=== PATIENT | female | born 1945 | race Caucasian/White ===

== ENCOUNTER 2023-01-19 10:14 | Emergency (ER) | payer MEDICARE, SELFPAY ==
[2023-01-19 10:24] VITALS: BP 148/64; PULSE 72; RESP 16; TEMP 36.3; O2SAT 97
--- NOTE | 2023-01-19 10:33 | ED.UPPEXIN ---
HPI - Extremity Injury (Upper) General Chief Complaint: Neck Pain/Injury Stated Complaint: Left Arm Pain Source: patient and RN notes reviewed History of Present Illness HPI narrative: 78 yo F presents to urgent care with complaints of left lateral neck and left arm pain and numbness x 2 days. Pt states she did do some cleaning the day her symptoms started. Pt reports increased pain when she moves her left arm around. Pt states the pain is relieved with ice application and rest. Denies any specific injury. Denies any weakness, chest pain, SOB, fevers, chills, N/V/D, dizziness, or other symptoms. Related Data Home Medications Medication Instructions Recorded Confirmed alclometasone 0.05 % topical topical 01/19/23 ointment alprazolam 1 mg tablet mg 01/19/23 amlodipine 5 mg tablet mg 01/19/23 atorvastatin 40 mg tablet mg 01/19/23 clobetasol 0.05 % scalp solution topical 01/19/23 clopidogrel 75 mg tablet mg 01/19/23 irbesartan 300 mg tablet mg 01/19/23 levothyroxine 50 mcg tablet mcg 01/19/23 mirabegron 25 mg tablet,extended mg PO 01/19/23 release 24 hr (Myrbetriq) venlafaxine 150 mg mg PO 01/19/23 capsule,extended release 24 hr Allergies Allergy/AdvReac Type Severity Reaction Status Date / Time No Known Allergies Allergy Unverified 01/19/23 10:41 Review of Systems Review of Systems: CONSTITUTIONAL: Denies fever, chills, or sweats. EYES: Denies visual changes, redness, or discharge. ENT: Denies otalgia and sore throat CARDIOVASCULAR: Denies chest pain, palpitations, or edema. RESPIRATORY: Denies cough or dyspnea. GASTROINTESTINAL: Denies abdominal pain, nausea, vomiting, or diarrhea. GENITOURINARY: Denies dysuria or hematuria. SKIN: Denies rash or itching. MUSCULOSKELETAL: Left neck and left arm pain NEUROLOGIC: Reports numbness/pain to left upper arm PMFSH Comments At the time of my signature, I reviewed and agree with the nursing past medical, surgical, social, and family history. There is no relevant family history pertinent to the patient complaint. Exam Narrative: GENERAL: This is a well-nourished, well-developed patient, in no apparent distress. HEAD: normocephalic, atraumatic. EYES: Sclera clear/white. Vision is grossly intact. EARS: External ears normal, auditory canals clear and without drainage. Hearing grossly intact. NOSE: External nose normal with no obvious nasal discharge, nares without redness, no rhinorrhea. THROAT: Mucous membranes moist, posterior pharynx clear. NECK: Neck supple, without lymphadenopathy, masses or thyromegaly. Mild tenderness to left lateral/posterior neck/trapezius area. Full ROM noted. CARDIOVASCULAR: Regular rate and rhythm without murmurs, gallops, or rubs. RESPIRATORY: Clear to auscultation. Breath sounds equal bilaterally. No wheezes, rales, or rhonchi. GASTROINTESTINAL: Abdomen soft, non-tender, nondistended. Bowel sounds are active. No hepato-splenomegaly, or palpable masses. No guarding. SKIN: warm, intact with no suspicious lesions or rash, good texture and turgor. NEURO: awake, alert, and oriented to person, place and time. There were no obvious focal neurologic abnormalities. EXTREMITIES: No clubbing, cyanosis, or edema. No joint tenderness, effusion, or edema noted. Full ROM. BACK: Nontender without deformity or crepitus. No flank tenderness. Course Course Level of Care: Express Care Visit Vital Signs Vital signs: Vital Signs Temperature 97.3 F L 01/19/23 10:24 Pulse Rate 72 01/19/23 10:24 Respiratory Rate 16 01/19/23 10:24 Blood Pressure 148/64 H 01/19/23 10:24 Pulse Oximetry 97 01/19/23 10:24 Oxygen Delivery Room Air 01/19/23 10:24 Temperature 97.3 F L 01/19/23 10:24 Pulse Rate 72 01/19/23 10:24 Respiratory Rate 16 01/19/23 10:24 Blood Pressure 148/64 H 01/19/23 10:24 Pulse Oximetry 97 01/19/23 10:24 Oxygen Delivery Room Air 01/19/23 10:24 Reviewed MDM - Extremity Injury (Up
[2023-01-19] MEDS: predniSONE 20 MG TABLET 40 MG PO (10:47)
== END 2023-01-19 11:10 | disposition home or self-care (01) ==
PROVIDERS: Emergency Provider Nurse Practitioner Family; PCP Family Medicine
DX: M54.12 Radiculopathy, cervical region (principal); E78.00 Pure hypercholesterolemia, unspecified; I10 Essential (primary) hypertension; K21.9 Gastro-esophageal reflux disease without esophagitis; M81.0 Age-related osteoporosis without current pathological fracture; Z86.73 Personal history of transient ischemic attack (TIA), and cerebral infarction without residual deficits
CPT/HCPCS: 99213; G0463; J7512

== ENCOUNTER 2023-03-03 12:07 | Emergency (ER) | payer MEDICARE, SELFPAY ==
[2023-03-03 12:19] VITALS: BP 151/68; PULSE 76; RESP 16; TEMP 36.6; O2SAT 97
--- NOTE | 2023-03-03 13:38 | ED.URI ---
HPI - URI/Sore Throat General Chief Complaint: Upper Respiratory Infection Stated Complaint: Vaginal Issue Time Seen by Provider: 03/03/23 13:27 Source: patient, RN notes reviewed and old records reviewed Mode of arrival: ambulatory Limitations: no limitations History of Present Illness HPI Narrative: 78 year old female who presents to express care with complaints of cough, nasal congestion body aches and some chills since yesterday, no known fevers. Patient reports that she has no no known ill exposure, has had flu shot this year and has been COVID vaccinated. Patient also reports irritation to vaginal area states skin from vaginag to rectal area itchy and burning, has used wash cloth to scratch area. Patient reports she has had previous similar complaint and her OB provider has given her some ointment to apply there MD elicited complaint: cough, rhinorrhea, nasal congestion and other (body aches and chills, vaginal issue) Onset (ago): day(s) (2) Pain scale (0-10): 2 Able to tolerate fluids by mouth: Yes Treatments prior to arrival: acetaminophen Related Data Home Medications Medication Instructions Recorded Confirmed alprazolam 1 mg tablet 0.5 mg PO HS PRN Anxiety 01/19/23 01/19/23 amlodipine 5 mg tablet 5 mg PO DAILY 01/19/23 01/19/23 ascorbic acid (vitamin C) 500 mg 250 mg PO DAILY 01/19/23 01/19/23 tablet atorvastatin 40 mg tablet 40 mg PO DAILY 01/19/23 01/19/23 calcium carbonate 500 mg-vitamin 1 tablet PO DAILY 01/19/23 01/19/23 D3 15 mcg (600 unit) tablet cetirizine 10 mg capsule (Zyrtec) 10 mg PO DAILY 01/19/23 01/19/23 clopidogrel 75 mg tablet 75 mg PO DAILY 01/19/23 01/19/23 fish oil-dha-epa 1,200 mg-144 1 cap PO DAILY 01/19/23 01/19/23 mg-216 mg capsule garlic 100 mg tablet 100 mg PO DAILY 01/19/23 01/19/23 irbesartan 300 mg tablet 300 mg PO DAILY 01/19/23 01/19/23 levothyroxine 50 mcg tablet 50 mcg PO DAILY 01/19/23 01/19/23 mirabegron 25 mg tablet,extended 25 mg PO DAILY 01/19/23 01/19/23 release 24 hr (Myrbetriq) multivitamin with minerals (Daily 1 tablet PO DAILY 01/19/23 01/19/23 Multivitamin-Minerals tablet) omeprazole 40 mg capsule,delayed 40 mg PO DAILY 01/19/23 01/19/23 release venlafaxine 150 mg 150 mg PO DAILY 01/19/23 01/19/23 capsule,extended release 24 hr vitamin E mixed 1,000 unit capsule 1,000 unit PO DAILY 01/19/23 01/19/23 esomeprazole magnesium 40 mg mg 03/03/23 capsule,delayed release Allergies Allergy/AdvReac Type Severity Reaction Status Date / Time No Known Allergies Allergy Unverified 03/03/23 12:19 Review of Systems Review of Systems: CONSTITUTIONAL: Denies fever, positive for chills, no sweats.reports body aches EYES: Denies visual changes, redness, or discharge. ENT: Positive for rhinorrhea, congestion, no sore throat, or otalgia. CARDIOVASCULAR: Denies chest pain, palpitations, or edema. RESPIRATORY: Reports cough denies dyspnea. GASTROINTESTINAL: Denies abdominal pain, nausea, vomiting, or diarrhea. GENITOURINARY: Denies dysuria or hematuria.positive for vaginal irritation and burning/itching SKIN: Denies rash or itching. MUSCULOSKELETAL: Denies back pain, joint pain, reports body aches NEUROLOGIC: Positive for history of anxiety or depression. All systems reviewed & are unremarkable except as noted in HPI and below PMFSH Past Medical History Medical History (Updated 03/05/23 @ 18:54 by Zully Chacon NP) Anxiety and depression CVA (cerebral vascular accident) Elevated cholesterol GERD (gastroesophageal reflux disease) Hypertension Hypothyroidism Wrist fracture, bilateral Surgical History Surgical History (Updated 03/05/23 @ 18:54 by Zully Chacon NP) History of right knee joint replacement Social History Social History (Updated 03/05/23 @ 18:50 by Zully Chacon NP) Smoking status: Never smoker Alcohol intake: current Alcohol use details: rare Substance use type: does not use Gender identity (if verbalized by the
--- NOTE | 2023-03-03 13:51 | PC.NURSE ---
given gown and aware of gas mask inspector to do further evaluation.
== END 2023-03-03 14:07 | disposition home or self-care (01) ==
PROVIDERS: Emergency Provider Registered Nurse
DX: J10.1 Influenza due to other identified influenza virus with other respiratory manifestations (principal); R10.2 Pelvic and perineal pain; Z20.822 Contact with and (suspected) exposure to COVID-19; Z86.73 Personal history of transient ischemic attack (TIA), and cerebral infarction without residual deficits; E78.00 Pure hypercholesterolemia, unspecified; K21.9 Gastro-esophageal reflux disease without esophagitis; I10 Essential (primary) hypertension; E03.9 Hypothyroidism, unspecified; Z96.651 Presence of right artificial knee joint; F41.9 Anxiety disorder, unspecified; F32.A Depression, unspecified
CPT/HCPCS: 87426; 87804; 99213; C9803; G0463

== ENCOUNTER 2025-03-06 09:49 | Emergency (ER) | payer MEDICARE, SELFPAY ==
--- OUTSIDE RECORDS SUMMARY | 2025-03-06 09:52 | XMS_ITS | Encounter Summary ---
Author Organization [facility] Healthcare Address [address] [place] [address] Care Team Providers Care Hvac Commercial Salesperson Name Role Phone Lolis Mendiola Unavailable [phone] Amber Ratliff MD Primary Care Provide r Any Stevenson NP Unavailable Fritz Gomez MD Unavailable [phone] Tete Villalobos MD Unavailable Encounter Details Date Type Department Care Team (Late st Contact Info) Description 01/31/2022 Telephone [facility] [address] [place] [id number] Aline Pena, RT Social History Tobacco Use Types Packs/Day Years Used Date Smoking Tobacco: Never Smokeless Tobacco: Never Alcohol Use Standard Drinks/Week Comments No 0 (1 standard drink = 0.6 oz pur e alcohol) PHQ-2 Answer Date Recorded PHQ-2 Total Score (If total score is 3 or more points, staff should administer the PHQ-9) 0 11/09/2021 Comments No Sex and Gender Information Value Date Recorded Sex Assigned at Not on file Legal Sex Female Gender Identity Not on file Sexual Orientation Not on file Occupation Industry Job Start Date Job End Date retired Not on file Not on file Not on file documented as of this encounter Plan of Treatment Not on file documented as of this encounter Visit Diagnoses Not on filedocumented in this encounter Additional Health Concerns Infection Onset Date Last Indicated Resolved Time COVID: Suspected 02/24/2022 02/24/2022 02/24/2022 2:42 PM APPLICATION PROCESSOR COVID19 02/24/2022 02/24/2022 03/06/2022 3:05 AM APPLICATION PROCESSOR COVID: Recovered Comment:Added based on recent COVID infection. 03/06/2022 03/11/2022 06/04/2022 3:05 AM C DT COVID: Suspected 06/15/2023 06/15/2023 06/15/2023 9:09 AM CDT documented as of this encounter Care Teams Hvac Commercial Salesperson Relationship Specialty Start Date End Date Amber Ratliff MD 2 [facility] [address] [place] [address] PCP - General Family Medicine 08/30/21 Lolis Mendiola PA Physician Picker Feeder Orthopedic Surgery 05/06/19 Any Stevenson, WINCH RUNNER [address] [facility] [address] [address] Obstetrics and Gynecology 11/01/21 Fritz Gomez MD 4 [facility] [address] [place] [address] Surgeon Orthopedic Surgery 11/01/21 [place] [address] [place] [address] Consulting Physician Urology 04/15/24 documented as of this encounter
--- OUTSIDE RECORDS SUMMARY | 2025-03-06 09:52 | XMS_ITS | Encounter Summary ---
Author Organization [facility] Healthcare Address [address] [place] [address] Care Team Providers Care Port Surveyor Name Role Phone Lolis Mendiola Unavailable [phone] Merritt Best MD Primary Care Provider [phone] Amber Ratliff MD Primary Care Provide r Any Stevenson NP Unavailable Fritz Gomez MD Unavailable [phone] Tete Villalobos MD Unavailable Encounter Details Date Type Department Care Team (Late st Contact Info) Description 09/11/2019 Telephone [facility] [address] [place] [id number] Riana Miles, [place] Social History Tobacco Use Types Packs/Day Years Used Date Smoking Tobacco: Never Smokeless Tobacco: Never Alcohol Use Standard Drinks/Week Comments No 0 (1 standard drink = 0.6 oz pur e alcohol) PHQ-2 Answer Date Recorded PHQ-2 Score 0 09/15/2019 Comments No Sex and Gender Information Value [...] Date Last Indicated Resolved Time COVID: Suspected 03/07/2021 03/07/2021 03/07/2021 1:36 PM MANAGER LAN COVID: Suspected 02/24/2022 02/24/2022 02/24/2022 2:42 PM MANAGER LAN COVID19 02/24/2022 02/24/2022 03/06/2022 3:05 AM MANAGER LAN COVID: Recovered Comment:Added based on recent COVID infection. 03/06/2022 03/11/2022 06/04/2022 3:05 AM C DT COVID: Suspected 06/15/2023 06/15/2023 06/15/2023 9:09 AM CDT documented as of this encounter Care Teams Port Surveyor Relationship Specialty Start Date End Date Merritt Best MD PCP - General Internal Medicine 08/07/19 08/29/21 Amber Ratliff MD [address] [place] [address] [address] [place] [address] PCP - General Family Medicine 08/30/21 Lolis Mendiola PA Physician Vascular Technologist Orthopedic Surgery 05/06/19 Any Stevenson, HR SHARED SERVICES CONSULTANT [address] [place] [address] [address] [address] Obstetrics and Gynecology 11/01/21 Fritz Gomez MD [address] [place] [address] [address] [place] [address] Surgeon Orthopedic Surgery 11/01/21 [place] [address] [place] [address] Consulting Physician Urology 04/15/24 documented as of this encounter
--- OUTSIDE RECORDS SUMMARY | 2025-03-06 09:52 | XMS_ITS | Encounter Summary ---
Author Organization [facility] Healthcare Address [address] [place] [address] Care Team Providers Care Data Processing Control Clerk Name Role Phone Lolis Mendiola Unavailable [phone] Amber Ratliff MD Primary Care Provide r Any Stevenson NP Unavailable Fritz Gomez MD Unavailable [phone] Tete Villalobos MD Unavailable Reason for Visit * Reason Onset Date Comments Pre Arrival 01/30/2023 Reminded patient of ultrasound appt on 01/31/23 @ 7:30 a.m. Encounter Details Date Type Department Care Team (Late st Contact Info) Description 01/30/2023 Telephone [facility] [address] [place] [address] Marycruz Gay Pre Arrival (Reminded patient of ultrasound appt on 01/31/23 @ 7:30 a.m.) Social History Tobacco Use Types Packs/Day Years Used Date Smoking Tobacco: Never Passive Smoke Exposure: Never Smokeless Tobacco: Never Alcohol Use Standard Drinks/Week Comments No 0 (1 standard drink = 0.6 oz pur e alcohol) AUDIT-C Answer Date Recorded Q1: How often do you have a drink containing alcohol? Never 06/07/2022 Q2: How many drinks containi ng alcohol do you have on a typical day when you are drinking? Patient does not drink Frequency of Binge Drinking Not on file 05/11 PHQ-2 Answer Date Recorded PHQ-2 Total Score (If total score is 3 or more points, staff should administer the PHQ-9) 0 01/22/2023 Personal Safety Answer Date Recorded Have you ever been in or are you currently in a harmful physical or emotional relationship or is someone making you feel afraid or unsafe? Denies 06/07/2022 Comments No Sex and Gender Information Value [...] Date Last Indicated Resolved Time COVID: Suspected 06/15/2023 06/15/2023 06/15/2023 9:09 AM CDT documented as of this encounter Care Teams Data Processing Control Clerk Relationship Specialty Start Date End Date Amber Ratliff MD [address] [facility] [address] [place] [address] PCP - General Family Medicine 08/30/21 Lolis Mendiola PA Physician Oil Dispatcher Orthopedic Surgery 05/06/19 Any Stevenson CLINICAL RADIOLOGIST [address] [place] [address] [address] [address] Obstetrics and Gynecology 11/01/21 Fritz Gomez MD [address] [place] [address] [address] [place] [address] Surgeon Orthopedic Surgery 11/01/21 [place] [address] [place] [address] Consulting Physician Urology 04/15/24 documented as of this encounter
--- OUTSIDE RECORDS SUMMARY | 2025-03-06 09:52 | XMS_ITS | Encounter Summary ---
Author Organization [facility] Address [address] [place] [address] Phone Care Team Providers Care Director Medical Surgical Name Role Phone Johnny Mckeon MD Primary Care Provider + Lolis Mendiola Unavailable [phone] Merritt Best MD Primary Care Provider [phone] Amber Ratliff MD Primary Care Provide r Any Stevenson NP Unavailable Fritz Gomez MD Unavailable [phone] Tete Villalobos MD Unavailable Encounter Details Date Type Department Care Team (Late st Contact Info) Description 03/13/2018 Telephone [facility] [address] [facility] Advanced Medicine [address]th [place] [address] [place] [address] Zoë Kent, MPH Social History Tobacco Use Types Packs/Day Years Used Date Smoking Tobacco: Never Smokeless Tobacco: Never Alcohol Use Standard Drinks/Week Comments No 0 (1 standard drink = 0.6 oz pur e alcohol) Comments No Sex and Gender Information Value [...] COVID: Suspected 03/07/2021 03/07/2021 03/07/2021 1:36 PM SYRUP MIXER ASSISTANT COVID: Suspected 02/24/2022 02/24/2022 02/24/2022 2:42 PM SYRUP MIXER ASSISTANT COVID19 02/24/2022 02/24/2022 03/06/2022 3:05 AM SYRUP MIXER ASSISTANT COVID: Recovered Comment:Added based on recent COVID infection. 03/06/2022 03/11/2022 06/04/2022 3:05 AM C DT COVID: Suspected 06/15/2023 06/15/2023 06/15/2023 9:09 AM CDT documented as of this encounter Care Teams Director Medical Surgical Relationship Specialty Start Date End Date Johnny Mckeon MD [address] [facility] [place] [address] PCP - General Internal Medicine 05/29/17 08/06/19 Merritt Best MD [facility] [place] [address] PCP - General Internal Medicine 08/07/19 08/29/21 Amber Ratliff MD [address] [place] [address] [place] [address] PCP - General Family Medicine 08/30/21 Lolis Mendiola PA [address] [place] [address] [place] [address] Physician Police Captain Precinct Orthopedic Surgery 05/06/19 Any Stevenson NP [address] [place] [address] [address] [address] Obstetrics and Gynecology 11/01/21 Fritz Gomez MD [address] [facility] [address]ER[address] [address] Surgeon Orthopedic Surgery 11/01/21 [place] [address] [place] [address] Consulting Physician Urology 04/15/24 documented as of this encounter
--- OUTSIDE RECORDS SUMMARY | 2025-03-06 09:52 | XMS_ITS | Clinical Summary ---
Author Organization [facility] Address [address] [place] [address] Phone Care Team Providers Care Kiln Drawer Name Role Phone Amber Ratliff MD Primary Care Provide r Enio Garcia MD Unavailable [phone] Checo Arevalo MD Unavailable [phone] Medications estradiol (ESTRACE VAGINAL) 0.1 MG/GM CreamIndication s:Vulvovaginal Atrophy 1 g by Vaginal route three times a week. 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 3 Active Active Problems No known active problems Social History Tobacco Use Types Packs/Day Years Used Date Smoking Tobacco: Never Assessed Comments Unknown Sex and Gender Information Value Date Recorded Sex Assigned at Not on file Legal Sex Female 10:24 PM CDT Gender Identity Not on file Sexual Orientation Not on file Last Filed Vital Signs Vital Sign Reading Time Taken Comments Blood Pressure 153/84 04/28/2024 9:15 AM PROBATE PARALEGAL Pulse 70 04/28/2024 9:15 AM PROBATE PARALEGAL Temperature - - Respiratory Rate 16 04/28/2024 9:15 AM PROBATE PARALEGAL Oxygen Saturation 98% 04/28/2024 9:15 AM PROBATE PARALEGAL Inhaled Oxygen Concentration - - Weight 83 kg (183 lb) 04/28/2024 9:15 AM PROBATE PARALEGAL Height 154.9 cm (5' 1) 04/28/2024 9:15 AM PROBATE PARALEGAL Body Mass Index 34.58 04/28/2024 9:15 AM PROBATE PARALEGAL Plan of Treatment Health Maintenance Due Date Last Done Comments Medicare Initial AWV [id number] 12/11/2011 DEXA Bone Density 02/08/2024 02/07/2022, 09/03/2019 Influenza Immunization (#1) 11/10/202411/10, 01/02/2023, 12/21/2021, Additional history exists SARS-COV-2 Immunization ( season) 2024 03/29/2023, 09/19/2021, 05/21/2020, Additional history exists Pneumococcal Immunization (50+ years) Completed 05/06/2015, 02/17/2014 TdaP Immunization Completed 06/20/2016 Zoster Immunization Completed 01/25/2021, 11/11/2020, 05/06/2015 Hepatitis C Virus (HCV) Screening Completed 02/22/2023 Respiratory Syncytial Virus (RSV) Immunization (Adult) Completed 02/27/2023 Hepatitis B Immunization Aged Out No longer eligible based on patient's age to complete this topic Human Papillomavirus (HPV) Immunization (No Doses Required) Completed Meningococcal Immunization (ACWY) Aged Out No longer eligible based on patient's age to complete this topic Rotavirus Immunization Aged Out No lo nger eligible based on patient's age to complete this topic Insurance MEDICARE [facility] Care Teams Kiln Drawer Relationship Specialty Start Date End Date Amber Ratliff MD [address] [address] PCP - General Family Medicine 11/21/23 Enio Garcia MD [address] [place] [address] Consulting Physician Neurology 02/04/24 Checo Arevalo MD [address] [address] Consulting Physician Urology 04/28/24
--- OUTSIDE RECORDS SUMMARY | 2025-03-06 09:52 | XMS_ITS | Encounter Summary ---
Author Organization [facility] Address [address] [place] [address] Phone Care Team Providers Care Campaign Developer Name Role Phone Johnny Mckeon MD Primary Care Provider + Eduin Pride MD Primary Care Provider [phone] Johnny Mckeon MD Primary Care Provider + Eduin Pride MD Primary Care Provider [phone] Johnny Mckeon MD Primary Care Provider + Miguelito Oneill LPN Unavailable Unavail able Eduin Pride MD Primary Care Provider [phone] Johnny Mckeon MD Primary Care Provider + Lolis Mendiola Unavailable [phone] Merritt Best MD Primary Care Provider [phone] Amber Ratliff MD Primary Care Provide r Any Stevenson NP Unavailable Fritz Gomez MD Unavailable [phone] Tete Villalobos MD Unavailable Encounter Details Date Type Department Care Team (Late st Contact Info) Description 04/17/2017 Orders Only [facility] Provider, Historical, MD [address] [place] [address] Social History Tobacco Use Types Packs/Day Years Used Date Smoking Tobacco: Never Smokeless Tobacco: Never Alcohol Use Standard Drinks/Week Comments No 0 (1 standard drink = 0.6 oz pur e alcohol) Comments Unknown Sex and Gender Information Value Date Recorded Sex Assigned at Not on file Legal Sex Female Gender Identity Not on file Sexual Orientation Not on file documented as of this encounter Plan of Treatment Not on file documented as of this encounter Procedures Procedure Name Priority Date/Time Associated Diagnosis Comments DISCHARGE LABORATORY CUMULATIVE REPORT 04/17/2017 12:00 AM FISH ICER documented in this encounter Results * DISCHARGE LABORATORY CUMULATIVE REPORT (04/17/2017 12:00 AM FISH ICER) Narrative 04/17/2017 12:00 AM FISH ICER Ordered by an unspecified provider. Historical Provider LAB BLOOD ORDERABLES Do l Result documented in this encounter Visit Diagnoses Not on filedocumented in this encounter Additional Health Concerns Infection Onset Date Last Indicated Resolved Time COVID: Suspected 03/07/2021 03/07/2021 03/07/2021 1:36 PM FISH ICER COVID: Suspected 02/24/2022 02/24/2022 02/24/2022 2:42 PM FISH ICER COVID19 02/24/2022 02/24/2022 03/06/2022 3:05 AM FISH ICER COVID: Recovered Comment:Added based on recent COVID infection. 03/06/2022 03/11/2022 06/04/2022 3:05 AM C DT COVID: Suspected 06/15/2023 06/15/2023 06/15/2023 9:09 AM CDT documented as of this encounter Care Teams Campaign Developer Relationship Specialty Start Date End Date Johnny Mckeon MD [address] [facility] [place] [address] PCP - General 04/17/17 04/18/17 Eduin Pride MD [address] [place] [address] [place] [address] PCP - General Internal Medicine 04/19/17 04/30/17 Johnny Mckeon MD [address] [place] [address] [place] [address] PCP - General 05/01/17 05/01/17 Eduin Pride MD [address] [place] [address] [place] [address] PCP - General Internal Medicine 05/02/17 05/08/17 Johnny Mckeon MD [address] [place] [address] [place] [address] PCP - General 05/09/17 05/23/17 Eduin Pride MD [address] [place] [address] [place] [address] PCP - General Internal Medicine 05/24/17 05/28/17 Johnny Mckeon MD [address] [place] [address] [place] [address] PCP - General Internal Medicine 05/29/17 08/06/19 Merritt Best MD [address] [place] [address] [place] [address] PCP - General Internal Medicine 08/07/19 08/29/21 Amber Ratliff MD [address] [place] [address] [place] [address] PCP - General Family Medicine 08/30/21 Miguelito Oneill LPN [address] [place] [address] [place] [address] Family Preservation Worker 05/23/17 05/24/17 Lolis Mendiola PA [address] [facility] [place] [address] Physician Electronics Design Engineer Orthopedic Surgery 05/06/19 Any Stevenson, PROGRAM PROFESSIONAL [address] [place] [address] [address] [address] Obstetrics and Gynecology 11/01/21 Fritz Gomez MD [address] [place] [address] [address] [place] [address] Surgeon Orthopedic Surgery 11/01/21 [place] [address] [place] [address] Consulting Physician Urology 04/15/24 documented as of this encounter
--- OUTSIDE RECORDS SUMMARY | 2025-03-06 09:52 | XMS_ITS | Encounter Summary ---
Author Organization [facility] Address [address] [place] [address] Care Team Providers Care [place] Name Role Phone Lolis Mendiola Unavailable Amber Ratliff MD Primary Care Provide r Any Stevenson NP Unavailable Fritz Gomez MD Unavailable [phone] Tete Villalobos MD Unavailable Encounter Details Date Type Department Care Team (Late st Contact Info) Description 02/28/2025 Results Follow-Up [facility] at [address] [place] [address] Ruchi Dennison NP [address] [place] [address] Urine culture Urine, clean voided Social History Tobacco Use Types Packs/Day Years Used Date Smoking Tobacco: Never Passive Smoke Exposure: Never Smokeless Tobacco: Never Alcohol Use Standard Drinks/Week Comments No 0 (1 standard drink = 0.6 oz pur e alcohol) PHQ-2 Answer Date Recorded PHQ-2 Total Score (If total score is 3 or more points, staff should administer the PHQ-9) 0 11/25/2024 PHQ-9 Answer Date Recorded PHQ-9 Total Score 3 08/27/2023 AUDIT-C Answer Date Recorded Q1: How often do you have a drink containing alc ohol? Never 11/05/2024 Average Number of Drinks Not on file 025 Frequency of Binge Drinking Not on file 10/11 Personal Safety Answer Date Recorded Have you [...] Diagnoses Not on filedocumented in this encounter Care Teams [place] Relationship Specialty Start Date End Date Amber Ratliff MD [address] [facility] [address] [place] [address] PCP - General Family Medicine 08/30/21 Lolis Mendiola PA Physician Home Health Lvn Orthopedic Surgery 05/06/19 Any Stevenson, DAVID [address] [place] [address] [address] [address] Obstetrics and Gynecology 11/01/21 Fritz Gomez MD [address] [place] [address] [address] [place] [address] Surgeon Orthopedic Surgery 11/01/21 [place] [address] [place] [address] Consulting Physician Urology 04/15/24 documented as of this encounter
--- OUTSIDE RECORDS SUMMARY | 2025-03-06 09:52 | XMS_ITS | Encounter Summary ---
Author Organization [facility] Address [address] [place] [address] Phone Care Team Providers Care [place] Name Role Phone Johnny Mckeon MD Primary Care Provider + Eduin Pride MD Primary Care Provider [phone] Johnny Mckeon MD Primary Care Provider + Miguelito Oneill LPN Unavailable Unavail able Eduin Pride MD Primary Care Provider [phone] Johnny Mckeon MD Primary Care Provider + Lolis Mendiola Unavailable [phone] Merritt Best MD Primary Care Provider [phone] Amber Ratliff MD Primary Care Provide r Any Stevenson NP Unavailable Fritz Gomez MD Unavailable [phone] Tete Villalobos MD Unavailable Encounter Details Date Type Department Care Team (Late st Contact Info) Description 05/01/2017 Orders Only [facility] ProviderAleksander MD [address] [place] [address] Social History Tobacco Use Types Packs/Day Years [...] Associated Diagnosis Comments DISCHARGE LABORATORY CUMULATIVE REPORT 05/01/2017 12:00 AM OCCUPATIONAL THERAPY TEACHER documented in this encounter Results * DISCHARGE LABORATORY CUMULATIVE REPORT (05/01/2017 12:00 AM OCCUPATIONAL THERAPY TEACHER) Narrative 05/01/2017 12:00 AM OCCUPATIONAL THERAPY TEACHER Ordered by an unspecified provider. Historical Provider LAB BLOOD ORDERABLES Do l Result documented in this encounter Visit Diagnoses Not on filedocumented in this encounter Additional Health Concerns Infection Onset Date Last Indicated Resolved Time COVID: Suspected 03/07/2021 03/07/2021 03/07/2021 1:36 PM OCCUPATIONAL THERAPY TEACHER COVID: Suspected 02/24/2022 02/24/2022 02/24/2022 2:42 PM OCCUPATIONAL THERAPY TEACHER COVID19 02/24/2022 02/24/2022 03/06/2022 3:05 AM OCCUPATIONAL THERAPY TEACHER COVID: Recovered Comment:Added based on recent COVID infection. 03/06/2022 03/11/2022 06/04/2022 3:05 AM C DT COVID: Suspected 06/15/2023 06/15/2023 06/15/2023 9:09 AM CDT documented as of this encounter Care Teams [place] Relationship Specialty Start Date End Date Johnny Mckeon MD [address] [place] [address] [place] [address] PCP - General 05/01/17 05/01/17 Eduin Pride MD [address] [place] [address] [place] [address] PCP - General Internal Medicine 05/02/17 05/08/17 Johnny Mckeon MD [facility] [facility] [place] [address] PCP - General 05/09/17 05/23/17 Eduin Pride MD [facility] [facility] [place] [place] [address] PCP - General Internal Medicine 05/24/17 05/28/17 Johnny Mckeon MD [facility] [facility] [place] [place] [address] PCP - General Internal Medicine 05/29/17 08/06/19 Merritt Best MD [address] [place] [address] [place] [address] PCP - General Internal Medicine 08/07/19 08/29/21 Amber Ratliff MD [address] [place] [address] [place] [address] PCP - General Family Medicine 08/30/21 Miguelito Oneill LPN [facility] [place] [address] Meringuer 05/23/17 05/24/17 Lolis Mendiola PA [address] [place] [address] [place] [address] Physician Mumps Developer Orthopedic Surgery 05/06/19 Any Stevenson, REGULATORY AFFAIRS ASSOCIATE [address] [place] [address] [place] [address] Obstetrics and Gynecology 11/01/21 Fritz Gomez MD [address] [place] [address] DR AYLIN [address] [place] [address] Surgeon Orthopedic Surgery 11/01/21 [place] [address] [place] [address] Consulting Physician Urology 04/15/24 documented as of this encounter
--- OUTSIDE RECORDS SUMMARY | 2025-03-06 09:52 | XMS_ITS | Clinical Summary ---
Author Organization [facility] Address [address] [place] [address] Care Team Providers Care Airline Stewardess Name Role Phone Johnny Mckeon MD Primary Care Provider [phone] Source Comments [facility],non-owned Affiliates and Associated Physician Practices is amultiple site organization consisting of ambulatory clinics and hospital sitesin [place] and [place]. This disclosure is being madepursuant to the Care Everywhere program and may not contain all information available regarding this patient. Last updated 17.[facility] Allergies No known active allergies Immunizations Immunization Administration Dates Next Due INFLUENZA VACCINE, HIGH-DOSE , QUADR. (FLUZONE HIGH-DOSE QUADRIVALENT; 65Y+), 0.7 ML (HD-[id number]) 12/14/2017 Social History Tobacco Use Types Packs/Day Years Used Date Smoking Tobacco: Never Assessed Comments Unknown Sex and Gender Information Value Date Recorded Sex Assigned at Not on file Legal Sex Female 5:39 PM BOOK CRITIC Gender Identity Not on file Sexual Orientation Not on file Plan of Treatment Health Maintenance Due Date Last Done Comments BONE DENSITY TESTING 1945 DTAP/TDAP/TD VACCINES (1 - Tdap) 1965 PNEUMOCOCCAL VACCINE 50+ (1 of 1 - PCV) 01/09/1996 ZOSTER VACCINE (1 of 2) 01/09/1996 Respiratory Syncytial Virus (RSV) Vaccine Pt: or over 60 yrs (1 - 1-dose 75+ series) 2021 DEPRESSION SCREENING 03/12/2024 COVID-19 VACCINE (1 - 2024- season) 2024 INFLUENZA VACCINE (#1) 2024 8, 12/20/2016, 01/06/2016, Additional history exists HEPATITIS B VACCINE Aged Out No longe r eligible based on patient's age to complete this topic HIB VACCINE Aged Out No longer eligi ble based on patient's age to complete this topic HPV VACCINE Aged Out No longer eligi ble based on patient's age to complete this topic MENINGOCOCCAL (Group B) VACCINE SHARED DECISION-MAKING Aged Out No longer eligible based on patient's age to complete this topic MENINGOCOCCAL GROUPS A/C/Y/W VACCINE Aged Out No longer eligible based on patient's age to complete this topic Insurance MEDICARE Care Teams Airline Stewardess Relationship Specialty Start Date End Date Johnny Mckeon MD PCP - General 07/22/08
--- OUTSIDE RECORDS SUMMARY | 2025-03-06 09:52 | XMS_ITS | Encounter Summary ---
Author Organization [facility] Healthcare Address [address] [place] [address] Care Team Providers Care Supply Chain Consultant Name Role Phone Lolis Mendiola Unavailable [phone] Merritt Best MD Primary Care Provider [phone] Amber Ratliff MD Primary Care Provide r Any Stevenson NP Unavailable Fritz Gomez MD Unavailable [phone] Tete Villalobos MD Unavailable Encounter Details Date Type Department Care Team (Late st Contact Info) Description 09/02/2019 Telephone [facility] [address] [place] [address] Andreina Francois, RT Social History Tobacco Use Types Packs/Day Years Used Date Smoking Tobacco: Never Smokeless Tobacco: Never Alcohol Use Standard Drinks/Week Comments No 0 (1 standard drink = 0.6 oz pur e alcohol) PHQ-2 Answer Date Recorded PHQ-2 Score 1 08/07/2019 Comments No Sex and Gender Information Value [...] COVID: Suspected 03/07/2021 03/07/2021 03/07/2021 1:36 PM SOFTWARE DEVELOPMENT MANAGER COVID: Suspected 02/24/2022 02/24/2022 02/24/2022 2:42 PM SOFTWARE DEVELOPMENT MANAGER COVID19 02/24/2022 02/24/2022 03/06/2022 3:05 AM SOFTWARE DEVELOPMENT MANAGER COVID: Recovered Comment:Added based on recent COVID infection. 03/06/2022 03/11/2022 06/04/2022 3:05 AM C DT COVID: Suspected 06/15/2023 06/15/2023 06/15/2023 9:09 AM CDT documented as of this encounter Care Teams Supply Chain Consultant Relationship Specialty Start Date End Date Merritt Best MD PCP - General Internal Medicine 08/07/19 08/29/21 Amber Ratliff MD [address] [place] [address] [place] [address] PCP - General Family Medicine 08/30/21 Lolis Mendiola PA Physician Assistant Floor Covering Printer Orthopedic Surgery 05/06/19 Any Stevenson, ELECTRICIAN FRONT [address] [place] [address] [address] [address] Obstetrics and Gynecology 11/01/21 Fritz Gomez MD [address] [place] [address] [address] [place] [address] Surgeon Orthopedic Surgery 11/01/21 [place] [address] [place] [address] Consulting Physician Urology 04/15/24 documented as of this encounter
--- OUTSIDE RECORDS SUMMARY | 2025-03-06 09:52 | XMS_ITS | Encounter Summary ---
Author Organization [facility] Address [address] [place] [address] Care Team Providers Care General Freight Agent Name Role Phone Lolis Mendiola Unavailable [phone] Amber Ratliff MD Primary Care Provide r Any Stevenson NP Unavailable Fritz Gomez MD Unavailable [phone] Tete Villalobos MD Unavailable Encounter Details Date Type Department Care Team (Late st Contact Info) Description 02/06/2022 Telephone [facility] [address] [place] [id number] Aline Pena, RT Social History Tobacco Use [...] COVID: Suspected 02/24/2022 02/24/2022 02/24/2022 2:42 PM WOOL AND PELT GRADER COVID19 02/24/2022 02/24/2022 03/06/2022 3:05 AM WOOL AND PELT GRADER COVID: Recovered Comment:Added based on recent COVID infection. 03/06/2022 03/11/2022 06/04/2022 3:05 AM C DT COVID: Suspected 06/15/2023 06/15/2023 06/15/2023 9:09 AM CDT documented as of this encounter Care Teams General Freight Agent Relationship Specialty Start Date End Date Amber Ratliff MD [address] [facility] [address] [place] [address] PCP - General Family Medicine 08/30/21 Lolis Mendiola PA Physician Carpenter Orthopedic Surgery 05/06/19 Any Stevenson, LENS BLOCKER [address] [facility] [address] [address] Obstetrics and Gynecology 11/01/21 Fritz Gomez MD [address] [facility] [address] [place] [address] Surgeon Orthopedic Surgery 11/01/21 [place] [address] [place] [address] Consulting Physician Urology 04/15/24 documented as of this encounter
--- OUTSIDE RECORDS SUMMARY | 2025-03-06 09:52 | XMS_ITS | Clinical Summary ---
Author Organization [facility] Address [address] [place] [address] Care Team Providers Care Truss Puller Helper Name Role Phone Unavailable Primary Care Provider Unavailabl e Allergies Active Allergy Reactions Criticality Noted Date Comments Lester Inhibitors Cough Low 02/21/2023 Zg-Lehgxfsklq-Ebprnmxbyovnf Other (see comment) Low 11/07/2017 Hot all over Ethyl Alcohol (Skin Cleanser) Redness Low 03/22/2020 Alcohol Medications azelastine (ASTELIN) 0.1 % nasal spray 1 spray by Nasal route 2 (two) times daily. 08/29/19 23 Active alclomethasone (ACLOVATE) 0.05 % ointment Apply topically as needed. 03/30/19 23 Active vitamin C (ASCORBIC ACID) 500 MG tablet Take 2 tablets (1,000 mg total) by mouth daily. Active calcium carbonate (OS-FLACO) 1250 (500 Ca) MG tablet Take 1 tablet (1,250 mg total) by mouth 2 (two) times daily. Active cetirizine (ZYRTEC) 10 MG tablet Take 1 tablet (10 mg total) by mouth daily. Active vitamin D3 (CHOLECALCIFEROL) 25 mcg tablet Take 2 tablets (2,000 Units total) by mouth daily. Active clobetasol (TEMOVATE) 0.05 % external solution 10/20/19 23 Active GARLIC OR Take 1 tablet by mouth daily. Active Warren-3 Fatty Acids (KP FISH OIL) 1200 MG Cap Take 1 capsule by mouth daily. Active ondansetron (ZOFRAN) 4 MG tablet Take 1 tablet (4 mg total) by mouth. 06/08/19 Active senna-docusate (SENOKOT-S) 8.6-50 MG tablet TAKE 1-2 TABLETS BY MOUTH NEEDED CONSTIPATION 06/08/19 23 Active vitamin E (E 1000) 450 MG (1000 UT) Cap Take 1 capsule (1,000 Units total) by mouth daily. Active triamcinolone (KENALOG) 0.1 % ointment Apply topically 2 (two) times daily. 10/12/19 23 Active triamcinolone acetonide (NASACORT) 55 MCG/ACT nasal inhaler 2 sprays by Nasal route daily. Active levothyroxine (SYNTHROID) 50 MCG tabletIndications: Acquired hypothyroidism TAKE 1 TABLET(50 MCG) BY MOUTH CIRCULATING PROCESS INSPECTOR BEFORE BREAKFAST 90 tablet 1 02/22/20 23 Active clopidogrel (PLAVIX) 75 MG tabletIndications: Cerebrovascular accident (CVA), unspecified mechanism (CMS/HCC HHS/HCC) Take 1 tablet (75 mg total) by mouth daily. 90 tablet 1 02/22/20 23 Active MYRBETRIQ 25 MG 24 hr tabletIndications: Mixed stress and urge urinary incontinence Take 1 tablet (25 mg total) by mouth daily. 90 tablet 1 02/22/20 23 Active atorvastatin (LIPITOR) 40 MG tabletIndications: Cerebrovascular accident (CVA), unspecified mechanism (CMS/HCC HHS/HCC) Take 1 tablet (40 mg total) by mouth daily. 90 tablet 1 02/22/20 23 Active ALPRAZolam (XANAX) 0.5 MG tabletIndications: ROBINSON (generalized anxiety disorder) Please take 1 tablet of Xanax about 15 minutes prior to your MRI. Thanks. 1 tablet 04/03/19 24 Active gabapentin (NEURONTIN) 100 MG capsule Take 1 capsule (100 mg total) by mouth 3 (three) times daily. 05/08/19 24 Active hydrOXYzine (ATARAX) 25 MG tabletIndications: ROBINSON (generalized anxiety disorder) Take 1 tablet (25 mg total) by mouth 3 (three) times daily. 270 tablet 1 05/15/19 24 Active venlafaxine XR (EFFEXOR-XR) 75 MG 24 hr capsuleIndications :Mild episode of recurrent major depressive disorder,ROBINSON (generalized anxiety disorder) Take 1 capsule (75 mg total) by mouth daily. Take a total of 225 mg of venlafaxine. 90 capsule 1 05/15/19 24 Active venlafaxine XR (EFFEXOR-XR) 150 MG 24 hr capsuleIndications :Mild episode of recurrent major depressive disorder,ROBINSON (generalized anxiety disorder) Take 1 capsule (150 mg total) by mouth daily. Take a total of 225 mg of venlafaxine. 90 capsule 1 05/15/19 24 Active amLODIPine (NORVASC) 5 MG tabletIndications: Primary hypertension Take 1 tablet (5 mg total) by mouth daily. 90 tablet 1 05/15/19 24 Active esomeprazole (NEXIUM) 40 MG capsuleIndications :Gastroesophageal reflux disease without esophagitis TAKE 1 CAPSULE(40 MG) BY MOUTH EVERY MORNING BEFORE BREAKFAST 90 capsule 1 07/27/19 24 Active irbesartan (AVAPRO) 300 MG tabletIndications: Primary hypertension Take 1 tablet (300 mg total) by mouth daily. Appointment with PCP 30 tablet 11/13/19 24 Active denosumab (PROLIA) 60 MG/ML injectionIndicatio ns:Age-related osteoporosis without current pathological fracture Inject 1 mL (60 mg total) into the skin every 6 (six) months. Ship to [address] [place] [address] 1 mL 3 11/19/19 24 Active Active Problems No known active problems Immunizations Immunization Administration Dates Next Due Arexvy Respiratory Syncytial Virus (RSV, adjuvanted) 0.5 mL, PF 02/27/2023 Fluzone High Dose - >Age 65 (Prefilled Syringe) 01/02/2023,12/21/2021,12/28/2020,2019,12/14/2017 Influenza (Generic) 01/22/2013, 2,12/07/2010,2009,12/02/2008,01/14/2008 Influenza Adult (Generic) 12/21/2021,,12/14/2017,2016,01/06/2016,01/24/2015,12/03/2013 Pneumococcal (Pneumovax 23) 02/17/2014 Pneumococcal (Prevnar 13) 05/06/2015 Shingrix 01/25/2021,11/11/2020 Tdap (Generic) 06/20/2016 Zoster (Zostavax) 70935 Unt/0.65Ml 05/06/2015 Social History Tobacco Use Types Packs/Day Years Used Date Smoking Tobacco: Never Smokeless Tobacco: Never Tobacco Cessation:Counseling Given: Yes Comments:Counseled by Dr. Garcia. PHQ-2 Answer Date Recorded Patient Health Questionnaire-2 Score 2 05/15/2023 Comments No Sex and Gender Information Value Date Recorded Sex Assigned at Not on file Legal Sex Female 12:50 PM CDT Gender Identity Not on file Sexual Orientation Not on file Last Filed Vital Signs Vital Sign Reading Time Taken Comments Blood Pressure 129/69 05/15/2023 12:42 PM VP GENETIC Pulse 83 05/15/2023 12:42 PM VP GENETIC Temperature 36.4 C (97.5 F) 05/15/2023 12:42 PM VP GENETIC Respiratory Rate 18 05/15/2023 12:42 PM VP GENETIC Oxygen Saturation 93% 05/15/2023 12:42 PM VP GENETIC Inhaled Oxygen Concentration - - Weight 83.7 kg (184 lb 9.6 oz) 05/15/2023 12:42 PM VP GENETIC Height 154.9 cm (5' 1) 05/15/2023 12:42 PM VP GENETIC Body Mass Index 34.88 05/15/2023 12:42 PM VP GENETIC Plan of Treatment Health Maintenance Due Date Last Done Comments Annual Medicare Wellness Visit 2011 PHQ-2 (Physician [place]) 03/12/2024 05/15/2023 COVID-19 Vaccine ( season) 2024 03/29/2023, 09/19/2021, 05/21/2020, Additional history exists Influenza Adult (#1) 2024 01/02/2023, 12/21/2021, 12/21/2021, Additional history exists DTaP, Tdap and Td Vaccines (2 - Td or Tdap) 06/20/2026 06/20/2016 Pneumococcal Vaccine: 50+ Years Completed 05/06/2015, 02/17/2014 Zoster Vaccines Completed 01/25/2021, 04/2020, 05/06/2015 Dexa Scan (General) Completed 02/21/2023, Hepatitis C Completed 02/22/2023 RSV Immunization or 60+ Years Completed 02/27/2023 Hepatitis A Vaccines Aged Out No long er eligible based on patient's age to complete this topic Meningococcal B Vaccine Aged Out No l onger eligible based on patient's age to complete this topic Meningococcal Vaccine Aged Out No marietta nadine eligible based on patient's age to complete this topic RSV Immunizations Under 20 Months Aged Out No longer eligible based on patient's age to complete this topic Procedures Procedure Name Priority Date/Time Associated Diagnosis Comments HEPATITIS C ANTIBODY W/RFX TO HCV RNA Routine 02/22/2023 9:16 AM VP GENETIC BONE DENSITY GENERIC (SCAN ORDER) 02/21/2023 from Last 3 Months or Most Recently Relevant to Health Maintenance Results * HEPATITIS C ANTIBODY W/RFX TO HCV RNA (02/22/2023 9:16 AM VP GENETIC) HEPATITIS C AB NON-REACT COURTNEY NON-REACT COURTNEY [facility] Comment: HCV antibody was non-reactive. There is no laboratory evidence of HCV infection. In most cases, no further action is required. However, if recent HCV exposure is suspected, a test for HCV RNA (test code 91692) is suggested. For additional information please refer to http://education.[employer]/faq/YEW00u7 (This link is being provided for informational/ educational purposes only.) 02/22/2023 9:16 AM VP GENETIC 02/22/2023 9:19 AM VP GENETIC Narrative [facility] - [place] - 02/23/2023 6:43 AM VP GENETIC FASTING:NO FASTING: NO Resulting Agency Comment Performing Organization Information: Site ID: [place] Name: [facility] Address: [address] [place] [address] Director: Juan Pablo Nguyen MD us Debbie Garcia MD LABORATORY Final Result [facility] - [facility] [id number] [address], * BONE DENSITY GENERIC (02/21/2023) Anatomical Region Laterality Modality Other 02/21/2023 [facility] Scanned SCANNING Final Resu lt from Last 3 Months or Most Recently Relevant to Health Maintenance Insurance MEDICARE [facility]
--- OUTSIDE RECORDS SUMMARY | 2025-03-06 09:52 | XMS_ITS | Encounter Summary ---
Author Organization [facility] Address [address] [facility] [address] [place] [id number] Care Team Providers Care Wire Bender Hand Name Role Phone Jhonny Mckeon MD Primary Care Provider + Eduin Pride MD Primary Care Provider [phone] Johnny Mckeon MD Primary Care Provider + Eduin Pride MD Primary Care Provider [phone] Johnny Mckeon MD Primary Care Provider + Eduin Pride MD Primary Care Provider [phone] Johnny Mckeon MD Primary Care Provider + Miguelito Oneill LPN Unavailable Unavail able Eduin Pride MD Primary Care Provider [phone] Johnny Mckeon MD Primary Care Provider + Lolis Mendiola Unavailable [phone] Merritt Best MD Primary Care Provider [phone] Amber Ratliff MD Primary Care Provide r Any Stevenson NP Unavailable Fritz Gomez MD Unavailable [phone] Tete Villalobos MD Unavailable Encounter Details Date Type Department Care Team (Late st Contact Info) Description 12/23/2016 Orders Only [facility] Health Information Management [address] [place] [address] Amber Ratliff MD [address] [place] [address] [place] [address] Social History Tobacco Use Types Packs/Day Years [...] Procedure Name Priority Date/Time Associated Diagnosis Comments SCAN - RADIOLOGY/IMAGING 12/23/2016 documented in this encounter Results * SCAN - RADIOLOGY/IMAGING (12/23/2016) Anatomical Region Laterality Modality Other Amber Ratliff MD Final Result documented in this encounter Visit Diagnoses Not on filedocumented in this encounter Additional Health Concerns Infection Onset Date Last Indicated Resolved Time COVID: Suspected 03/07/2021 03/07/2021 03/07/2021 1:36 PM SYSTEM TRAINER COVID: Suspected 02/24/2022 02/24/2022 02/24/2022 2:42 PM SYSTEM TRAINER COVID19 02/24/2022 02/24/2022 03/06/2022 3:05 AM SYSTEM TRAINER COVID: Recovered Comment:Added based on recent COVID infection. 03/06/2022 03/11/2022 06/04/2022 3:05 AM C DT COVID: Suspected 06/15/2023 06/15/2023 06/15/2023 9:09 AM CDT documented as of this encounter Care Teams Wire Bender Hand Relationship Specialty Start Date End Date Johnny Mckeon MD [address] [facility] [place] [address] PCP - General 06/09/16 02/18/17 Eduin Pride MD [address] [place] [address] [place] [address] PCP - General Internal Medicine 02/19/17 04/16/17 Johnny Mckeon MD [address] [place] [address] [place] [address] PCP - General 04/17/17 04/18/17 Eduin Pride MD [address] [place] [address] [place] [address] PCP - General Internal Medicine 04/19/17 04/30/17 Johnny Mckeon MD [address] [place] [address] [place] [address] PCP - General 05/01/17 05/01/17 Eduin Pride MD [address] [place] [address] [place] [address] PCP - General Internal Medicine 05/02/17 05/08/17 Johnny Mckeon MD [address] [place] [address] [place] [address] PCP - General 05/09/17 05/23/17 Eduin Pride MD [address] [place] [address] [place] [address] PCP - General Internal Medicine 05/24/17 05/28/17 Johnny Mckeon MD [address] [place] [address] [place] [address] PCP - General Internal Medicine 05/29/17 08/06/19 Merritt Best MD [address] [place] [address] PCP - General Internal Medicine 08/07/19 08/29/21 Amber Ratliff MD [address] [place] [address] [place] [address] PCP - General Family Medicine 08/30/21 Miguelito Oneill LPN [address] [place] [address] Silverware Cleaner 05/23/17 05/24/17 Lolis Mendiola PA [address] [place] [address] Physician Shipping/Receiving Clerk Orthopedic Surgery 05/06/19 Any Stevenson, CASHIER CLERK [address] [place] [address] [address] [address] Obstetrics and Gynecology 11/01/21 Fritz Gomez MD [address] [facility] [address] AYLIN Barajas [facility] [address] [place] [address] Surgeon Orthopedic Surgery 11/01/21 [place] [address] [place] [address] Consulting Physician Urology 04/15/24 documented as of this encounter
--- OUTSIDE RECORDS SUMMARY | 2025-03-06 09:52 | XMS_ITS | Clinical Summary ---
Author Organization [facility] Address [address] [place] [address] Care Team Providers Care Research And Development Director Name Role Phone Maury Lolis TRINIDAD Unavailable [phone] Amber Ratliff MD Primary Care Provide r Any Stevenson NP Unavailable Fritz Gomez MD Unavailable [phone] Tete Villalobos MD Unavailable Allergies Active Allergy Reactions Criticality Noted Date Comments Lester Inhibitors Cough Low Swpyrehbaj-Bn-Zfavnolcpsfq n Other (See comments) Low 11/07/2017 Hot all over Ethyl Alcohol Redness Low 03/22/2020 Alcohol Ethyl Alcohol-Herbal Drugs Redness Low Nyquil Other (See comments) Low 11/07/2017 Hot all over Medications cetirizine (ZyrTEC) 10 mg tablet take 1 tablet by oral route every day 0 0 08/25/19 16 Active calcium carbonate-vitami n D3 (OS-FLACO 500 + D3) 500mg (1,250mg) -600 unit tablet Take one by mouth two times per day 0 0 12/04/19 09 Active ascorbic acid (ascorbic acid) 500 mg tablet,chewable Take 1 tablet/chew tab (500 mg total) by mouth 2 (two) times a day 60 tablet/chew tab 04/30/19 20 Active ARIPiprazole (ABILIFY) 2 mg tablet Take 1 tablet (2 mg total) by mouth daily Active triamcinolone (KENALOG) 0.1 % ointmentIndicati ons:Skin Inflammation Apply topically 2 (two) times a day 30 g 1 11/01/19 22 Active Additional Information Patient not taking.Reported on 02/27/2025 alclomethasone (ACLOVATE) 0.05 % ointment Apply topically as needed 03/30/19 23 Active fish oil-dha-epa 1,200-144-216 mg capsule Take 1 capsule by mouth daily Active garlic tablet Take 1 tablet by mouth daily Active vitamin E (AQUASOL E) 1,000 unit capsule Take 1 capsule (1,000 Units total) by mouth daily Active multivitamin with minerals tablet Take 1 tablet by mouth daily Active venlafaxine XR (EFFEXOR-XR) 75 mg 24 hr capsule Take 2 capsules (150 mg total) by mouth daily Take with food. 180 capsule 1 04/04/19 25 Active dicyclomine (BENTYL) 20 mg tablet Take 1 tablet (20 mg total) by mouth every 6 (six) hours As needed for abdominal cramps and diarrhea 30 tablet 1 04/15/19 25 Active Myrbetriq 50 mg tablet extended release 24 hr Take 1 tablet (50 mg total) by mouth daily 90 tablet 1 06/06/19 25 Active atorvastatin (LIPITOR) 40 mg tablet TAKE 1 TABLET(40 MG) BY MOUTH DAILY 90 tablet 1 09/16/19 25 Active amLODIPine (NORVASC) 5 mg tablet TAKE 1 TABLET(5 MG) BY MOUTH DAILY 90 tablet 1 10/07/19 25 Active irbesartan (AVAPRO) 300 mg tablet TAKE 1 TABLET(300 MG) BY MOUTH DAILY 90 tablet 1 10/28/19 25 Active clopidogreL (PLAVIX) 75 mg tablet TAKE 1 TABLET(75 MG) BY MOUTH DAILY 90 tablet 1 11/22/[address] (NexIUM) 40 mg capsule TAKE 1 CAPSULE(40 MG) BY MOUTH DAILY BEFORE BREAKFAST 90 capsule 1 12/19/19 25 Active ezetimibe (ZETIA) 10 mg tablet TAKE 1 TABLET(10 MG) BY MOUTH DAILY 90 tablet 1 12/19/19 25 Active levothyroxine (SYNTHROID) 50 mcg tablet TAKE 1 TABLET BY MOUTH EVERY MORNING BEFORE BREAKFAST 90 tablet 1 01/13/20 25 Active calcium carbonate (OS-FLACO) 1,500 mg (600 mg elemental) tablet Take by mouth daily Active ALPRAZolam (XANAX) 1 mg tablet Take 2 tablets (2 mg total) by mouth nightly as needed for anxiety 60 tablet 02/11/20 25 Active ALPRAZolam (XANAX) 1 mg tablet Take 2 tablets (2 mg total) by mouth nightly as needed for anxiety 60 tablet 11/26/19 25 025 Discontinu ed(Reorder ) nitrofurantoin monohydrate (MACROBID) 100 mg capsuleIndicatio ns:Acute cystitis with hematuria Take 1 capsule (100 mg total) by mouth 2 (two) times a day for 5 days 10 capsule 02/28/20 25 025 Active Problems Problem Noted Date Diagnosed Date Overactive bladder 02/02/2025 Increased frequency of urination 02/02/2025 Atrophic vaginitis 02/02/2025 Asymptomatic bacteriuria 02/02/2025 Vaginal delivery 02/02/2025 Overview (02/02/2025): 3. Sensory urge incontinence 02/02/2025 Class 2 severe obesity due t o excess calories with serious comorbidity and body mass index (BMI) of 36.0 to 36.9 in adult 11/20/2023 Assessment & Plan (11/25/2024 4:49 PM CDT): Assessment & Plan (06/25/2024 2:43 PM CDT): She was counseled on the importance of maintaining a healthy weight and the risks of obesity. Weight loss recommended. Assessment & Plan (05/27/2024 9:36 AM CDT): She was counseled on the importance of maintaining a healthy weight and the risks of obesity. Weight loss recommended. Assessment & Plan (04/15/2024 3:20 PM ETHNOLOGY TEACHER): The patient was counseled on the importance of maintaining a healthy weight and the risks of obesity. Weight loss recommended. Assessment & Plan (11/20/2023 10:34 AM CDT): She was counseled on the importance of maintaining a healthy weight and the risks of obesity. Weight loss recommended. Chronic cough 11/20/2023 Assessment & Plan (12/26/2023 10:06 AM CDT): Chronic resolved likely 2/2 post nasal drip Recommend flonase cont koko F/u prn Assessment & Plan (11/20/2023 9:51 AM CDT): New concern Chronic Possibly 2/2 post nasal drip Recommend flonase Recommend switching from zyrtec to koko Nodule of finger of left hand 07/04/2023 Assessment & Plan (06/25/2024 8:51 AM CDT): Chronic Worsening Will get xray Referral to plastic surgery for evaluation and possible removal Assessment & Plan (07/04/2023 2:38 PM CDT): Chronic Worsening Referral to general surgery for evaluation and possible removal Neck pain 01/22/2023 Assessment & Plan (01/22/2023 2:59 PM ETHNOLOGY TEACHER): New concern Improving but not at goal Will get xray of the neck and shoulder although low suspicion for herniated disc given no recent heavy lifting or trauma Complete steroid and muscle relaxer given by CC Continue tylenol and heat for pain Can do otc voltaren gel Referral to physical therapy F/u if no improvement and will consider MRI Acute pain of left shoulder 01/22/2023 Assessment & Plan (01/22/2023 3:00 PM ETHNOLOGY TEACHER): New concern Improved Will get xray of the shoulder Continue tylenol and heat for pain F/u if no improvement Sensation of fullness in left ear 08/28/2022 Assessment & Plan (08/28/2022 1:54 PM CDT): Ear exam clear Continue zyrtec Add astepro twice a day Can do flonase instead if she wants F/u prn Trigger thumb of left hand 05/29/2022 Overview (05/29/2022): Added automatically from request for surgery [id number] Assessment & Plan (05/30/2022 6:18 AM CDT): Going for trigger release Medicare annual wellness visit, subsequent 11/01 Assessment & Plan (11/25/2024 4:49 PM CDT): Labs pending Colonoscopy: utd Mammo: utd Recommend staying up to date on vaccines F/u in 1 year for annual Assessment & Plan (11/20/2023 10:33 AM CDT): Cbc cmp lipid tsh A1c reviewed Lipid panel pending Colonoscopy: referral placed Mammo: ordered Flu given today F/u in 1 year for annual Assessment & Plan (11/05/2022 11:04 AM CDT): Cbc cmp lipid tsh a1c Colonoscopy: up to date Mammo: ordered F/u in 1 year for annual Assessment & Plan (11/01/2021 1:04 PM CDT): Labs reviewed and discussed Colonoscopy: up to date Mammo: scheduled F/u in 1 year for annual Cyst of joint of hand, left 11/01/2021 Assessment & Plan (11/01/2021 1:05 PM CDT): Sonogram ordered to confirm Not interested in surgery if it is just a cyst Chronic vulvitis 10/31/2021 Double vision 09/27/2021 Assessment & Plan (09/27/2021 11:57 AM CDT): Resolved US doppler of carotids and MRI of brain given Hx of stroke Continue current medications Instructed patient that if she develops any stroke like symptoms she should report to the ER or at least call the office immediately F/u in 1 month Recurrent major depressive disorder, in partial remission 10/28/2020 Assessment & Plan (11/25/2024 4:49 PM CDT): Stable / clinically quiescent. Will continue to monitor. Continue effexor 150mg daily -SI/-HI Assessment & Plan (11/20/2023 10:35 AM CDT): Stable / clinically quiescent. Will continue to monitor. Continue effexor 150mg daily -SI/-HI F/u in 6 months Assessment & Plan (08/27/2023 4:12 PM CDT): Stable / clinically quiescent. Will continue to monitor. Continue effexor 150mg daily -SI/-HI F/u at annual for monitoring Assessment & Plan (07/04/2023 2:53 PM CDT): Stable / clinically quiescent. Will continue to monitor. Would like to cut back on the effexor Will do 225mg daily instead of 300mg After 2 weeks can try cutting back to 150mg daily. Instructed that if she develops any withdrawal symptoms to go back to the original dose F/u in 2 months for monitoring Assessment & Plan (11/05/2022 11:02 AM CDT): Stable / clinically quiescent. Will continue to monitor. Continue with current medications of venlafaxine Assessment & Plan (11/01/2021 1:02 PM CDT): Stable / clinically quiescent. Will continue to monitor. Continue with current medications Degenerative joint disease of right midfoot 04/2019 Primary osteoarthritis of right knee 11/12/2019 Essential hypertension 08/07/2019 Assessment & Plan (11/25/2024 4:49 PM CDT): Bp in the office today BP Readings from Last 1 Encounters: 11/25/24 126/78 Continue current regimen of amlodipine 5 mg daily and irbesartan 300 mg daily Recommend DASH diet, heart-healthy lifestyle, exercise. Discussed the risks of hypertension. Assessment & Plan (05/27/2024 9:20 AM CDT): Bp in the office today BP Readings from Last 1 Encounters: 05/27/24 132/80 Continue current regimen of amlodipine 5 mg daily and irbesartan 300 mg daily Recommend DASH diet, heart-healthy lifestyle, exercise. Discussed the risks of hypertension. F/u in 6 months Assessment & Plan (04/15/2024 3:19 PM ETHNOLOGY TEACHER): Recommend DASH diet, heart healthy lifestyle, exercise. Discussed the risks of hypertension. Assessment & Plan (11/20/2023 9:27 AM CDT): Bp in the office today BP Readings from Last 1 Encounters: 11/20/23 130/62 Continue current regimen of amlodipine 5 mg daily and irbesartan 300 mg daily Recommend DASH diet, heart-healthy lifestyle, exercise. Discussed the risks of hypertension. F/u in 6 months Assessment & Plan (08/27/2023 4:11 PM CDT): Bp in the office today BP Readings from Last 1 Encounters: 08/27/23 140/60 Continue current regimen of amlodipine 5 mg daily and irbesartan 300 mg daily Recommend DASH diet, heart-healthy lifestyle, exercise. Discussed the risks of hypertension. F/u in sept Assessment & Plan (07/04/2023 11:47 AM CDT): Bp in the office today BP Readings from Last 1 Encounters: 07/04/23 156/78 Continue current regimen of amlodipine 5 mg daily and irbesartan 300 mg daily Recommend DASH diet, heart-healthy lifestyle, exercise. Discussed the risks of hypertension. F/u in 6 months Assessment & Plan (11/06/2022 1:31 PM CDT): Bp in the office today BP Readings from Last 1 Encounters: 11/06/22 124/70 Continue current regimen of amlodipine 5 mg daily and irbesartan 300 mg daily Recommend DASH diet, heart-healthy lifestyle, exercise. Discussed the risks of hypertension. F/u in 6 months Assessment & Plan (03/11/2022 11:01 AM ETHNOLOGY TEACHER): Blood pressure well controlled on her regimen of amlodipine and irbesartan. Continue for now. Call back if blood pressures change Assessment & Plan (11/01/2021 10:28 AM CDT): Bp in the office today BP Readings from Last 1 Encounters: 11/01/21 126/70 Continue current regimen Recommend DASH diet, heart-healthy lifestyle, exercise. Discussed the risks of hypertension. Assessment & Plan (06/30/2021 2:48 PM CDT): Recommend DASH diet, heart-healthy lifestyle, exercise. Discussed the risks of hypertension. Assessment & Plan (07/26/2020 1:24 PM CDT): Recommend DASH diet, heart-healthy lifestyle, exercise. Discussed the risks of hypertension. Bilateral carotid artery stenosis 08/07/2019 Assessment & Plan (11/25/2024 4:49 PM CDT): Duplex dopplers of carotids ordered Assessment & Plan (11/16/2023 10:39 PM CDT): Duplex dopplers of carotids ordered Assessment & Plan (11/01/2021 1:01 PM CDT): Duplex dopplers of carotids scheduled Trigger thumb of right hand 06/27/2018 Overview (06/27/2018): Added automatically from request for surgery [id number] GERD (gastroesophageal reflux disease) 8 Assessment & Plan (11/25/2024 4:49 PM CDT): Stable / clinically quiescent. Will continue to monitor. Continue with nexium Assessment & Plan (11/05/2022 11:02 AM CDT): Stable / clinically quiescent. Will continue to monitor. Continue with nexium Assessment & Plan (11/01/2021 1:02 PM CDT): Stable / clinically quiescent. Will continue to monitor. Continue with nexium Assessment & Plan (07/28/2017 7:31 PM CDT): Stop PPI and try ranitidine and call back if symptoms worsen. History of CVA (cerebrovascular accident) 2016 Overview (05/01/2017): Residual right arm weakness, expressive aphasia Assessment & Plan (11/25/2024 4:49 PM CDT): Stable Continue plavix statin Assessment & Plan (11/20/2023 9:56 AM CDT): Stable Continue plavix Referral to neurology given Assessment & Plan (11/06/2022 1:00 PM CDT): History of cva Stable Continue blood pressure control Continue plavix. Continue atorvastatin Assessment & Plan (05/31/2022 8:28 AM CDT): Continue blood pressure control Continue plavix. Can stop 3 days prior to surgery Does not need the aspirin Continue atorvastatin Assessment & Plan (07/28/2017 7:31 PM CDT): Continue blood pressure control, Plavix, atorvastatin. Oropharyngeal dysphagia 12/27/2016 Injury of left scapholunate ligament with no ins tability 08/21/2016 Osteoporosis 08/10/2016 Overview (08/11/2016): Osteoporosis Assessment & Plan (11/25/2024 4:49 PM CDT): Continue with prolia injections Assessment & Plan (05/27/2024 9:29 AM CDT): Continue with prolia injections Given today Assessment & Plan (11/16/2023 10:40 PM CDT): Continue with prolia injections Assessment & Plan (11/05/2022 11:02 AM CDT): Continue with prolia injections Assessment & Plan (11/01/2021 1:04 PM CDT): dexa scan ordered Continue with prolia injections Assessment & Plan (07/28/2017 7:31 PM CDT): Continue calcium, vitamin-D, weight-bearing exercise repeat bone density scan every 2 years. Recurrent major depressive disorder 06/02/2014 Overview (06/15/2016): Depression Assessment & Plan (07/28/2017 7:30 PM CDT): Stable on venlafaxine and should continue holding sertraline. Atopic rhinitis 06/02/2014 Overview (06/15/2016): Chronic allergic rhinitis Cervical radiculopathy 06/02/2014 Overview (06/15/2016): Cervical radiculopathy Obstructive sleep apnea syndrome 06/02/2014 Overview (06/15/2016): EDMOND (obstructive sleep apnea) Assessment & Plan (11/25/2024 4:49 PM CDT): Continue cpap Assessment & Plan (11/16/2023 10:44 PM CDT): Continue cpap Assessment & Plan (11/06/2022 1:00 PM CDT): Continue cpap Assessment & Plan (07/28/2017 7:30 PM CDT): Patient should be more compliant his CPAP machine and call back if she has difficulty with this for sleep medicine referral. Vitamin D deficiency 07/26/2013 Overview (06/14/2016): VITAMIN D DEFICIENCY NOS Assessment & Plan (07/28/2017 7:30 PM CDT): Continue supplementation and check level before next visit. Hypothyroidism 07/26/2013 Overview (06/16/2016): Hypothyroidism Assessment & Plan (11/25/2024 4:49 PM CDT): Lab Results Component Value Date TSH 2.43 11/25/2024 Stable / clinically quiescent. Will continue to monitor. Continue levothyroxine Assessment & Plan (11/16/2023 10:41 PM CDT): Lab Results Component Value Date TSH 1.95 08/23/2023 Stable / clinically quiescent. Will continue to monitor. Continue levothyroxine 50 mcg daily Tsh ordered Assessment & Plan (11/06/2022 1:34 PM CDT): Stable / clinically quiescent. Will continue to monitor. Continue levothyroxine 50 mcg daily Tsh ordered Assessment & Plan (11/01/2021 1:01 PM CDT): Stable / clinically quiescent. Will continue to monitor. Assessment & Plan (07/28/2017 7:31 PM CDT): Patient is asymptomatic on current dose of levothyroxine and TSH free T4 are normal and we will repeat levels before next visit. Temporomandibular joint disorder 05/27/2013 Overview (06/14/2016): TMJ (temporomandibular joint disorder) Lichen sclerosus et atrophicus 10/09/2012 Overview (06/16/2016): Lichen sclerosus Anxiety 09/04/2012 Overview (06/14/2016): Anxiety Assessment & Plan (11/25/2024 4:49 PM CDT): Stable / clinically quiescent. Will continue to monitor. Continue effexor 150mg daily and xanax prn -SI/-HI Assessment & Plan (11/20/2023 10:35 AM CDT): Stable / clinically quiescent. Will continue to monitor. Continue effexor 150mg daily -SI/-HI F/u in 6 months Assessment & Plan (08/27/2023 4:12 PM CDT): Stable / clinically quiescent. Will continue to monitor. Continue effexor 150mg daily -SI/-HI F/u at annual for monitoring Assessment & Plan (07/04/2023 2:56 PM CDT): Stable / clinically quiescent. Will continue to monitor. [employer]co refilled Ilpmp reviewed showing that she was seeing another primary doctor. KARIN called after the visit and confirmed that she is no longer seeing that provider Hyperlipidemia 09/04/2012 Overview (06/14/2016): Hyperlipemia Assessment & Plan (11/25/2024 4:49 PM CDT): Lab Results Component Value Date CHOL 158 11/25/2024 CHOL 163 12/20/2023 CHOL 196 08/23/2023 Lab Results Component Value Date HDL 39 (L) 11/25/2024 HDL 38 (L) 12/20/2023 HDL 38 (L) 08/23/2023 Lab Results Component Value Date LDLCALC 87 11/25/2024 LDLCALC 98 11/10/2022 LDLCALC 100 10/28/2021 LDL 94 12/20/2023 LDL 126 (H) 08/23/2023 LDL 174 (H) 11/03/2015 Lab Results Component Value Date TRIG 188 (H) 11/25/2024 TRIG 221 (H) 12/20/2023 TRIG 204 (H) 08/23/2023 No results found for: POCCHDLR No results found for: POCNONHDL No results found for: POCCHLPL Continue with lipitor Assessment & Plan (12/26/2023 10:07 AM CDT): Lab Results Component Value Date CHOL 163 12/20/2023 CHOL 196 08/23/2023 CHOL 194 11/10/2022 Lab Results Component Value Date HDL 38 (L) 12/20/2023 HDL 38 (L) 08/23/2023 HDL 38 (L) 11/10/2022 Lab Results Component Value Date LDLCALC 98 11/10/2022 LDLCALC 100 10/28/2021 LDLCALC 65 04/25/2021 LDL 94 12/20/2023 LDL 126 (H) 08/23/2023 LDL 174 (H) 11/03/2015 Lab Results Component Value Date TRIG 221 (H) 12/20/2023 TRIG 204 (H) 08/23/2023 TRIG 288 (H) 11/10/2022 No results found for: POCCHDLR No results found for: POCNONHDL No results found for: POCCHLPL Continue with lipitor Discussed Mediterranean diet and exercise Assessment & Plan (11/16/2023 10:36 PM CDT): Lab Results Component Value Date CHOL 196 08/23/2023 CHOL 194 11/10/2022 CHOL 180 10/28/2021 Lab Results Component Value Date HDL 38 (L) 08/23/2023 HDL 38 (L) 11/10/2022 HDL 42 10/28/2021 Lab Results Component Value Date LDLCALC 98 11/10/2022 LDLCALC 100 10/28/2021 LDLCALC 65 04/25/2021 LDL 126 (H) 08/23/2023 LDL 174 (H) 11/03/2015 LDL 106 03/19/2015 Lab Results Component Value Date TRIG 204 (H) 08/23/2023 TRIG 288 (H) 11/10/2022 TRIG 192 (H) 10/28/2021 No results found for: POCCHDLR No results found for: POCNONHDL No results found for: POCCHLPL Continue with lipitor Discussed Mediterranean diet and exercise Assessment & Plan (08/27/2023 4:15 PM CDT): Lab Results Component Value Date CHOL 196 08/23/2023 CHOL 194 11/10/2022 CHOL 180 10/28/2021 Lab Results Component Value Date HDL 38 (L) 08/23/2023 HDL 38 (L) 11/10/2022 HDL 42 10/28/2021 Lab Results Component Value Date LDLCALC 98 11/10/2022 LDLCALC 100 10/28/2021 LDLCALC 65 04/25/2021 LDL 126 (H) 08/23/2023 LDL 174 (H) 11/03/2015 LDL 106 03/19/2015 Lab Results Component Value Date TRIG 204 (H) 08/23/2023 TRIG 288 (H) 11/10/2022 TRIG 192 (H) 10/28/2021 No results found for: POCCHDLR No results found for: POCNONHDL No results found for: POCCHLPL Continue with lipitor Repeat lipid in 3 months Discussed Mediterranean diet and exercise Assessment & Plan (07/04/2023 7:11 AM CDT): Stable / clinically quiescent. Will continue to monitor. Continue with lipitor Assessment & Plan (11/05/2022 11:00 AM CDT): Stable / clinically quiescent. Will continue to monitor. Continue with lipitor Assessment & Plan (03/11/2022 11:00 AM ETHNOLOGY TEACHER): Hold atorvastatin until 3 days after paxlovid completed. Assessment & Plan (11/01/2021 1:00 PM CDT): Stable / clinically quiescent. Will continue to monitor. Continue with lipitor Assessment & Plan (07/28/2017 7:30 PM CDT): Well controlled on current therapy and will check a lipid panel and LFTs in 6 months. Resolved Problems Problem Noted Date Diagnosed Date Resolved Date Encounter for completion of form with patient 05/28/19 25 11/24/2024 Assessment & Plan (05/27/2024 9:37 AM CDT): Once exercise form is filled, will return to patient Obesity due to excess calori es with serious comorbidity 06/15/2023 11/20/2023 Assessment & Plan (08/27/2023 4:15 PM CDT): She was counseled on the importance of maintaining a healthy weight and the risks of obesity. Weight loss recommended. Assessment & Plan (06/15/2023 8:34 AM CDT): Wt Readings from Last 3 Encounters: 06/15/23 84.8 kg (186 lb 14.4 oz) 01/22/23 83.9 kg (185 lb) 11/06/22 84.8 kg (187 lb) Body mass index is 34.74 kg/m . -Stable, not at goal <30 -Discussed recommendations for exercise at least 30 minutes moderate to vigorous exercise most days of the week. (minimum 150 minutes weekly) -Discussed importance of well-balanced diet. Pre-operative clearance 05/31/202211/10 Assessment & Plan (05/31/2022 8:24 AM CDT): She understands that no procedure is risk-free but accepts those as discussed during OV and wishes to proceed. She was instructed to contact us if any new symptoms or problems arise between now and surgery date. According to the RCRI, the patient's number of risk factors stratifies patient to class II, which carries a 6% risk of major cardiovascular complications She is medically optimized for surgery and was instructed to hold the plavix 3 days prior to surgery COVID-19 02/24/2022 04/15/2024 Assessment & Plan (03/11/2022 11:02 AM ETHNOLOGY TEACHER): Paxlovid recommended and side effects discussed. Hold atorvastatin until completed. Try Delsym for cough suppression fluids rest humidification Tylenol for aches pains and fevers and call back if no improvement. ER if develops significant shortness of breath Acute cystitis with hematuria 07/18/2021 11/05/2022 Assessment & Plan (11/09/2021 1:22 PM CDT): Push fluids, cranberry juice. Patient was instructed to contact us in 2 days for results of urine culture. POCT dip showed small leuks and large blood. Will send of for UA and culture Start bactrim Understands to give us a call if symptoms worsens, she develops fevers, or pain in the kidney area Repeat UA in 6-8 weeks Assessment & Plan (07/18/2021 4:10 PM CDT): Push fluids, cranberry juice. Patient was instructed to contact us in 2 days for results of urine culture. POCT dip showed small leuks and large blood. Will send of for UA and culture Start macrobid 100mg bid for 5 days Understands to give us a call if symptoms worsens, she develops fevers, or pain in the kidney area Repeat UA in 6 weeks Complex tear of medial menis cus of right knee as current injury 04/28/2019 08/07/2019 Overview (04/28/2019): Added automatically from request for surgery [id number] Cubital tunnel syndrome on right 06/27/2018 08/07/2019 Overview (06/27/2018): Added automatically from request for surgery [id number] Carpal tunnel syndrome on right 06/27/2018 08/07/2019 Overview (06/27/2018): Added automatically from request for surgery [id number] Acute ischemic left MCA stroke 01/25/2017 05/01/2017 Medication management 12/14/20162017 Healthcare maintenance 12/14/201608/06 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 09/18/2016 08/07/2019 Closed fracture of distal en d of left radius with routine healing 08/21/2016 08/07/2019 Closed fracture of lunate of left wrist 08/21/2016 08/07/2019 Muscle pain 06/02/2014 08/07/2019 Overview (06/15/2016): Myalgia and myositis Sprain of shoulder 06/02/2014 0 Overview (06/15/2016): Shoulder sprain Headache 06/02/2014 08/07/2019 Overview (06/15/2016): Headache Dyslipidemia 07/26/2013 12/20/2016 Overview (06/14/2016): Dyslipidemia Benign hypertension 07/26/2013 08/07/19 20 Overview (06/15/2016): BENIGN HYPERTENSION Assessment & Plan (07/28/2017 7:30 PM CDT): Well controlled on the current regimen. Avoidance of salt, proper body weight, and routine exercise recommended. Hypertension 09/04/2012 12/20/2016 Overview (06/14/2016): Hypertension Disorder of thyroid 09/04/2012 12/21/19 17 Overview (06/16/2016): Thyroid disease Encounters Date Type Department Care Team Description 02/28/2025 Results Follow-Up [facility] [place] [address] [place] [id number] Ruchi Dennison NP Urine culture Urine, clean voided 02/27/2025 10:41 AM ETHNOLOGY TEACHER - 02/27/2025 11:59 PM ETHNOLOGY TEACHER Hospital Encounter [address] [address] Acute cystitis with hematuria Discharge Disposition: Discharge to home or self care 02/27/2025 8:15 AM ETHNOLOGY TEACHER Office Visit [facility] [place] [address] [place] [phone] Nereida Vang NP Acute cystitis with hematuria (Primary Dx) 02/23/2025 Orders Only [facility] [address] [place] [address] [address] [place] [address] Lolis Mendiola PA Spinal stenosis, lumbar region, without neurogenic claudication (Primary Dx); Primary osteoarthritis of right hip 02/02/2025 9:30 AM ETHNOLOGY TEACHER Office Visit [facility] [address] [place] [address] [address] [place] [phone] Lolis Medniola PA Primary osteoarthritis of right hip (Primary Dx); Spinal stenosis, lumbar region, without neurogenic claudication 02/02/2025 9:29 AM ETHNOLOGY TEACHER - 02/02/2025 11:59 PM ETHNOLOGY TEACHER Hospital Encounter [facility] [address] [place] [address] [address] [place] [address] Discharge Disposition: Discharge to home or self care 02/02/2025 9:28 AM ETHNOLOGY TEACHER - 02/02/2025 11:59 PM ETHNOLOGY TEACHER Hospital Encounter [facility] [address] [place] [address] [address] [place] [phone] Discharge Disposition: Discharge to home or self care 01/07/2025 Telephone [facility] [place] [address] [place] [address] Amber Ratliff MD Insurance Referrals 01/02/2025 Results Follow-Up [facility] [place] [address] [place] [address] Amber Ratliff MD Dexa Axial Skeleton Bone Density 1 Or 2 Site 01/01/2025 12:24 PM CDT - 01/01/2025 11:59 PM CDT Hospital Encounter [facility] [address] [place] [address] Age related osteoporosis, unspecified pathological fracture presence Discharge Disposition: Discharge to home or self care 12/12/2024 9:00 AM CDT Office Visit [facility] [place] [address] [place] [address] Teagan Farmer MD Obstructive sleep apnea (Primary Dx); Hypersomnia; Obesity, unspecified class, unspecified obesity type, unspecified whether serious comorbidity present from Last 3 Months Immunizations Immunization Administration Dates Next Due Influenza, Quad, Adjuvantate d, Intramuscular 12/21/2021 Influenza, Quadrivalent, Hig h Dose, Preservative Free, Intrr 01/02/2023,12/21/2021,12/28/2020,12/23,12/14/2017 Influenza, Quadrivalent, Spl it, Preservative Free, Intramuscular 01/24/2015 Influenza, Split 02/26/2012,12/07/2010, 0 Influenza, Trivalent, High D ose, Split, Preservative Free, Intramuscular 11/20/2023,01/06/2019,12/14/2017,12/20,01/06/2016,12/03/2013 Influenza, Trivalent, IM (MDV) 01/22/2013,2008,01/14/2008 Influenza, Unspecified 12/21/2021,2021(Deferred: Patient Refused),11/01/2021(Deferred: Patient Refused),01/06/2019,12/14/2017, 016,01/24/2015,12/03/2013,01/22/2013,1 04/28/2011,12/07/2010,01/19/2010,2008,01/14/2008 Pfizer SARS-CoV-2 Monovalent Vaccination (12+ Yrs) PURPLE 05/21/2020,04/30/2020 Pneumococcal Conjugate PCV 13 05/06/2015 Pneumococcal Polysaccharide PPV23 02/17/2014 RSV Vaccine, Pref, Recombina nt, Subunit, Adjuvanted, PF, IM (Arexvy) 02/27/2023 Tdap 06/20/2016 ZOSTER LIVE 05/06/2015 ZOSTER Recombinant 01/25/2021,11/11/2020 Surgical History Surgery Date Site/Laterality Comments TUBAL LIGATION 03/12/1975 - 03/11/1976 CHOLECYSTECTOMY 03/12/2000 - 03/11/2001 REPAIR ZENKER'S DIVERTICULA 03/12/2008 - 03/11/2009 DILATION AND CURETTAGE OF UTERUS 03/12/1964 - 03/11/1965 miscarriage BREAST BIOPSY 03/12/1999 - 03/11/2000 Left benign needle bx, outer breast TRIGGER FINGER RELEASE Right JOINT REPLACEMENT Right knee Medical History Medical History Date Comments Anxiety disorder Closed left arm fracture 2017 Right wrist fracture 2010 Migraine headache Genital herpes simplex type 2 2010 History of ischemic colitis 2006 impr ximena 07/01/18 Restless leg syndrome improved Esophageal dysmotility Improved 04/29/2019 Choroid cyst Hyperlipidemia GERD (gastroesophageal reflux disease) Hypothyroidism Osteoporosis Anxiety and depression Breast cyst Hypertension Telangiectasia right hand PONV (postoperative nausea and vomiting) Sleep apnea, obstructive CPAP, it doesn't work very well; getting home study soon Stroke ([facility]) 2016 no residual Stroke ([facility]) 12/2016 Stroke ([facility]) 2017 Arthritis Family History Medical History Relation Name Comments Coronary artery disease Father COD at age 46 Hyperlipidemia Father Hypertension Father Diabetes Maternal Grandmother Coronary artery disease Mother COD at age 68 Irritable bowel syndrome Sister 1 Depression Sister 2 Rheum arthritis Sister 3 Fibromyalgia Sister 4 Breast cancer Neg Hx Ovarian cancer Neg Hx Thyroid cancer Neg Hx Relation Name Status Comments Father Maternal Grandmother Mother Sister 1 Sister 2 Sister 3 Sister 4 Social History Tobacco Use Types Packs/Day Years [...] file Not on file Not on file Obstetrics History Para Term AB IAB SAB Ectopic Multiple Livin g Live Births 4 3 3 0 1 0 1 0 0 3 3 Date Outcome GA Total Labor Labor/2nd/3rd Weight Sex Type Anes PTL Jennifer A1 A5 Name Clin Term Term Term SAB Last Filed Vital Signs Vital Sign Reading Time Taken Comments Blood Pressure 126/70 02/27/2025 8:12 AM ETHNOLOGY TEACHER Pulse 66 02/27/2025 8:12 AM ETHNOLOGY TEACHER Temperature 36.7 C (98 F) 02/27/2025 8:12 AM ETHNOLOGY TEACHER Respiratory Rate 16 02/27/2025 8:12 AM ETHNOLOGY TEACHER Oxygen Saturation 98% 02/27/2025 8:12 AM ETHNOLOGY TEACHER Inhaled Oxygen Concentration - - Weight 81.6 kg (180 lb) 02/27/2025 8:12 AM ETHNOLOGY TEACHER Height 152.4 cm (5') 02/27/2025 8:12 AM ETHNOLOGY TEACHER Body Mass Index 35.15 02/27/2025 8:12 AM ETHNOLOGY TEACHER Plan of Treatment Health Maintenance Due Date Last Done Comments Breast Cancer Screening-Mammogram 04/21/2025 04/21/2024, 03/07/2023, 02/01/2022, Additional history exists Influenza Vaccine (#1) 2025 , 01/02/2023, 12/21/2021, Additional history exists Postponed from 11/10/2024 (Patient declined, but will receive in the future) Covid-19 Vaccine ( season) 2025 03/29/2023, 09/19/2021, 05/21/2020, Additional history exists Postponed from 11/10/2024 (Patient declined, but will receive in the future) Depression Screening 11/25/2025 11/25/2024, 06/25/2024, 05/27/2024, Additional history exists Fall Risk Assessment 11/25/2025 11/25/2024, 06/25/2024, 05/27/2024, Additional history exists Well Visit 65+ 11/25/2025 11/25/2024, 11/10, 11/06/2022, Additional history exists DTaP/Tdap/Td Vaccine (2 - Td or Tdap) 06/20/2026 06/20/2016 Osteoporosis Screening-Bone Density Scan 01/01/2027 01/01/2025, 02/07/2022, 09/03/2019, Additional history exists Colon Cancer Screening-CT Colonography Discontinued 01/24/2013, 01/24/2013 Colon Cancer Screening-Colonoscopy Discontinued 01/24/2013, 01/24/2013 Colon Cancer Screening-Sigmoidoscopy Discontinued 01/24/2013, 01/24/2013 Pneumococcal vaccine 65+ Completed 05/06/2015, 11/2013 Zoster Vaccine Completed 01/25/2021, 04/2020, 05/06/2015 Hepatitis C Screening Completed 10/28/2021, Hepatitis B Screening Completed 08/23/2023 Colon Cancer Screening-DNA Stool Discontinued 01/04/2024, 01/24/2013, 01/24/2013 Colon Cancer Screening-FIT Discontinued 01/03, 01/24/2013, 01/24/2013 Colon Cancer Screening-FOBT Discontinued 01/04/2024, 01/24/2013, 01/24/2013 Colorectal Cancer Screening Discontinued Medical Devices Implanted Type Area Air Control Electronics Operator Device Identifier Shelf Expiration Date Model / Serial / Lot Tevet [employer] [id number] [place] R+G High Viscosity Cement Bone Gentamicin Arthroplasty - [id number] Implanted:Qty: 1 on 03/25/2020 by Fritz Gomez MD at [facility] Bone Cement Right: Knee [employer] 05/09/2022 [id number] / / [id number] [employer] [id number] Attune 5mm Cruciate Retaining Fix Bearing Knee 4 Insert Tibial - [id number] Implanted:Qty: 1 on 03/25/2020 by Fritz Gomez MD at [facility] Right: Knee [employer] 04/11/2024 [id number] / / [id number] [employer] [id number] Attune S+ Cement Fix Bearing Knee 4 Baseplate Tibial - [id number] Implanted:Qty: 1 on 03/25/2020 by Fritz Gomez MD at [facility] Right: Knee [employer] 11/09/2029 [id number] / / [id number] [employer] [id number] Attune Cruciate Retain Cementless Knee Right 4 Component Femoral - [id number] Implanted:Qty: 1 on 03/25/2020 by Firtz Gomez MD at [facility] Right: Knee [employer] 12/10/2027 [id number] / / [id number] [employer] [id number] Attune 35mm Cemented Medialize Knee Dome Patellar Aox Sterile - [id number] Implanted:Qty: 1 on 03/25/2020 by Fritz Gomez MD at [facility] Right: Knee [employer] 11/09/2024 [id number] / / [id number] Procedures Procedure Name Priority Date/Time Associated Diagnosis Comments URINE CULTURE Routine 02/27/2025 10:41 AM ETHNOLOGY TEACHER Acute cystitis with hematuria POCT URINALYSIS DIPSTICK Routine 02/27/2025 8:26 AM ETHNOLOGY TEACHER Acute cystitis with hematuria XR SPINE LUMBAR 2 OR 3 VIEWS Schedule Routine, Read Routine (OP Routine) 02/02/2025 9:30 AM ETHNOLOGY TEACHER Primary osteoarthritis of right hip XR HIP RIGHT 2 OR 3 VIEWS Schedule Routine, Read Routine (OP Routine) 02/02/2025 9:30 AM ETHNOLOGY TEACHER Primary osteoarthritis of right hip DEXA AXIAL SKELETON BONE DENSITY 1 OR MORE SITES Schedule Routine, Read Routine (OP Routine) 01/01/2025 12:52 PM CDT Age related osteoporosis, unspecified pathological fracture presence SCREENING MAMMOGRAM BILATERAL W CONRAD Schedule Routine, Read Routine (OP Routine) 04/21/2024 2:49 PM ETHNOLOGY TEACHER Screening mammogram, encounter for STOOL DNA COLOGUARD Routine 01/04/2024 7:01 AM CDT Colon cancer screening HEPATITIS C ANTIBODY Routine 10/28/2021 8:20 AM CDT Mixed hyperlipidemia Essential hypertension Acquired hypothyroidism Need for hepatitis C screening test Abnormal blood chemistry HM COLONOSCOPY Routine 01/24/2013 from Last 3 Months or Most Recently Relevant to Health Maintenance Results * Urine culture Urine, clean voided (02/27/2025 10:41 AM ETHNOLOGY TEACHER) Report Final Report: Less than 100,000 colonies/mL (clinically insignificant growth based on current clinical standards) Comment:Testing performed by : [facility], [address] [place]., [address] Organism (CLINICALLY INSIGNIFICANT GROWTH STEPHANY XIONG Urine, clean voided 02/27/2025 10:41 AM ETHNOLOGY TEACHER 02/27/2025 5:02 PM ETHNOLOGY TEACHER Narrative STEPHANY XIONG - 02/28/2025 5:38 PM ETHNOLOGY TEACHER Testing performed by [facility] ([phone]) us Nereida Vang [facility] MICROBIOLOGY - GENERAL O RDERABLES Final Result STEPHANY XION[facility] [address] Department [place] [address] * (ABNORMAL) POCT urinalysis dipstick (02/27/2025 8:26 AM ETHNOLOGY TEACHER) Color, Urine, POC Dark Yellow Clarity, ur, POC Turbid(A) Clear Glucose, ur, POC Negative Negative Bilirubin, ur, POC Negative Negative Ketones, ur, POC Negative Negative Specific Pettigrew, POC 1.025 1.003 - 1.030 Blood, ur, POC Trace(A) Negative pH, ur, POC 6.0 5.0 - 8.0 Protein, ur, POC Trace(A) Negative Urobilinogen, urine, POC 0.2 0.2 - 1.0 mg/dL Nitrite, ur, POC Negative Negative Leukocytes, ur, POC Small(A) Negative Lot Number [id number] Urine 02/27/2025 8:26 AM ETHNOLOGY TEACHER Ruchi Dennison [facility] POINT OF CARE TEST ORDERABL ES Final Result * XR Spine Lumbar 2 or 3 Views (02/02/2025 9:30 AM ETHNOLOGY TEACHER) Anatomical Region Laterality Modality Spine N/A Digital Radiogra phy Narrative 02/22/2025 11:04 PM ETHNOLOGY TEACHER Radiographs of the lumbar spine is reviewed interpreted. No evidence of vertebral body fracture. Degenerative changes are seen with the associated scoliosis, vertebral disc space narrowing, and osteophyte formation. Calcification seen of the abdominal aorta Lolis TRINIDAD IMG XR PROCEDURES Final Result * XR Hip Right 2 or 3 Views (02/02/2025 9:30 AM ETHNOLOGY TEACHER) Anatomical Region Laterality Modality Lower Extremities, Hip, Pelvis Right D igital Radiography Narrative 02/22/2025 11:02 PM ETHNOLOGY TEACHER Radiographs of the right hip is reviewed, interpreted, and compared with images from 2022. Degenerative changes are seen of the femoral acetabular joint without significant radiographic progression or signs of avascular necrosis. Joint space narrowing and osteophyte formation is present Lolis TRINIDAD IMG XR PROCEDURES Final Result * Dexa Axial Skeleton Bone Density 1 Or 2 Site (01/01/2025 12:52 PM CDT) Anatomical Region Laterality Modality Body N/A Other 01/02/2025 7:27 AM CDT Impressions 01/02/2025 7:27 AM CDT Low bone mass. General Recommendations: 1. Consider an evaluation for secondary causes of osteoporosis in patients with low bone density. 2. All patients should be counseled on adequate intake of calcium (1200 mg/day), vitamin D (600-800 IU daily) and exercise. 3. The National Osteoporosis Foundation (NOF) guidelines recommend initiating pharmacological therapy, in addition to calcium, vitamin D and exercise, to reduce fracture risk when: a. T-score less than or equal to -2.5 after secondary causes excluded. b. T-score between -1.0 and -2.5 with secondary causes associated with high risk of fracture. c. 10-year probability of hip fracture more than or equal to 3% (based on FRAX score). d. 10-year probability of major osteoporosis related fracture more than or equal to 20% (based on FRAX score). Followup: People with diagnosed cases of osteoporosis or at high risk for fracture should have regular bone mineral density tests. For patients eligible for Medicare, routine testing is allowed once every 2 years. The testing frequency can be increased to one year for patients who have rapidly progressive disease or those who are receiving long-term steroid therapy. Electronically signed by: Wilfredo Ordaz M.D. Narrative 01/02/2025 7:27 AM CDT STUDY DESCRIPTION: DEXA AXIAL SKELETON BONE DENSITY 1 OR MORE SITES CLINICAL INDICATIONS: osteoporosis screening. COMPARISON: 02/07/2022 Dissimilar scan types preclude direct comparison. TECHNIQUE: Dual x-ray absorptiometry (DEXA) was performed using [employer] system. GENERAL GUIDELINES: According to WHO guidelines, a T score of -1.0 or greater is normal, between -1.0 to -2.4 is osteopenia, and -2.5 or less is osteoporosis. Z score (instead of T score) is preferred for pediatric, young adults, premenopausal women and men under age of 50 years. In these patients, a Z score greater than or equal to -2.0 is considered to be in the expected range. FINDINGS: LUMBAR SPINE: Bone mineral density 1.283 g/sq/cm. T-score 2.1. LEFT TOTAL HIP: Bone mineral density 0.954 g/sq/cm. T-score 0.1. FEMORAL NECK: Bone mineral density 0.663 g/sq/cm. T-score -1.7. FRAX score not calculated due to treatment for osteoporosis. Procedure Note Wilfredo Ordaz MD - 01/02/2025 STUDY DESCRIPTION: DEXA AXIAL SKELETON BONE DENSITY 1 OR MORE SITES CLINICAL INDICATIONS: osteoporosis screening. COMPARISON: 02/07/2022 Dissimilar scan types preclude direct comparison. TECHNIQUE: Dual x-ray absorptiometry (DEXA) was performed using [employer] system. GENERAL GUIDELINES: According to WHO guidelines, a T score of -1.0 or greater is normal, between -1.0 to -2.4 is osteopenia, and -2.5 or less is osteoporosis. Z score (instead of T score) is preferred for pediatric, young adults, premenopausal women and men under age of 50 years. In these patients, a Z score greater than or equal to -2.0 is considered to be in the expected range. FINDINGS: LUMBAR SPINE: Bone mineral density 1.283 g/sq/cm. T-score 2.1. LEFT TOTAL HIP: Bone mineral density 0.954 g/sq/cm. T-score 0.1. FEMORAL NECK: Bone mineral density 0.663 g/sq/cm. T-score -1.7. FRAX score not calculated due to treatment for osteoporosis. IMPRESSION: Low bone mass. General Recommendations: 1. Consider an evaluation for secondary causes of osteoporosis in patients with low bone density. 2. All patients should be counseled on adequate intake of calcium (1200 mg/day), vitamin D (600-800 IU daily) and exercise. 3. The National Osteoporosis Foundation (NOF) guidelines recommend initiating pharmacological therapy, in addition to calcium, vitamin D and exercise, to reduce fracture risk when: a. T-score less than or equal to -2.5 after secondary causes excluded. b. T-score between -1.0 and -2.5 with secondary causes associated with high risk of fracture. c. 10-year probability of hip fracture more than or equal to 3% (based on FRAX score). d. 10-year probability of major osteoporosis related fracture more than or equal to 20% (based on FRAX score). Followup: People with diagnosed cases of osteoporosis or at high risk for fracture should have regular bone mineral density tests. For patients eligible for Medicare, routine testing is allowed once every 2 years. The testing frequency can be increased to one year for patients who have rapidly progressive disease or those who are receiving long-term steroid therapy. Electronically signed by: Wilfredo Ordaz M.D. Amber Ratliff MD IMG DXA PROCEDURES Fi nal Result * Screening Mammogram Bilateral W Conrad (04/21/2024 2:49 PM ETHNOLOGY TEACHER) Anatomical Region Laterality Modality Breast Bilateral Mammography 04/21/2024 3:08 PM ETHNOLOGY TEACHER Impressions 04/21/2024 3:08 PM ETHNOLOGY TEACHER There is no mammographic evidence of malignancy. A 1 year screening mammogram is recommended. BI-RADS: 2 - Benign. The patient has been or will be contacted. The patient will be entered into a reminder system with a target due date of 1 year for her next mammogram. Electronically signed by: Gui Griffin M.D. Narrative 04/21/2024 3:08 PM ETHNOLOGY TEACHER EXAMINATION: SCREENING MAMMOGRAM BILATERAL W CONRAD ORDERING HEALTHCARE PROVIDER: SELF SCREENING MAMMOGRAM HISTORY: Routine screening mammography. COMPARISON: 03/07/2023,02/01/2022, 01/31/2021, 12/23/2019, 02/01/2018, 01/23/2018 TECHNIQUE: CC and MLO views of the bilateral breasts were obtained with digital technique using breast tomosynthesis with C view. Computer aided detection was utilized. FINDINGS: DENSITY: The breasts are heterogeneously dense, which may obscure small masses. BREASTS: There are scattered benign calcifications in both breasts. There are no suspicious masses, suspicious calcifications, or other suspicious findings in either breast. There has been no suspicious interval change. us Self Screening Mammogram IMG MAMMO PROCEDURES Fi nal Result * Stool DNA - Cologuard (01/04/2024 7:01 AM CDT) Stool DNA - Cologuard Negative Negative [facility] (CLIA #:[id number]) Comment: NEGATIVE TEST RESULT. A negative Cologuard result indicates a low likelihood that a colorectal cancer (CRC) or advanced adenoma (adenomatous polyps with more advanced pre-malignant features) is present. The chance that a person with a negative Cologuard test has a colorectal cancer is less than 1 in 1500 (negative predictive value >99.9%) or has an advanced adenoma is less than 5.3% (negative predictive value 94.7%). These data are based on a prospective cross-sectional study of 10,000 individuals at average risk for colorectal cancer who were screened with both Cologuard and colonoscopy. (Fred Briscoe al, N Engl J Med 2014;370(14):4131-7208) The normal value (reference range) for this assay is negative. COLOGUARD RE-SCREENING RECOMMENDATION: Periodic colorectal cancer screening is an important part of preventive healthcare for asymptomatic individuals at average risk for colorectal cancer. Following a negative Cologuard result, the [place] [employer] and U.S. Multi-Society Task Force screening guidelines recommend a Cologuard re-screening interval of 3 years. References: [place] [employer] Guideline for Colorectal Cancer Screening: https://www.cancer.org/cancer/xljbh-wkihhr-lmwspn/uoeyetsao-rbtcmmayk-dxjagvd/ac s-rec ommendations.html.; Jefry DK, Shannon CR, Missy CainK, Colorectal Cancer Screening: Recommendations for Physicians and Patients from the U.S. Multi-Society Task Force on Colorectal Cancer Screening , Am J Gastroenterology 2017; 112:1745-2207. TEST DESCRIPTION: Composite algorithmic analysis of stool DNA-biomarkers with hemoglobin immunoassay. Quantitative values of individual biomarkers are not reportable and are not associated with individual biomarker result reference ranges. Cologuard is intended for colorectal cancer screening of adults of either sex, 45 years or older, who are at average-risk for colorectal cancer (CRC). Cologuard has been approved for use by the U.S. FDA. The performance of Cologuard was established in a cross sectional study of average-risk adults aged 50-84. Cologuard performance in patients ages 45 to 49 years was estimated by sub-group analysis of near-age groups. Colonoscopies performed for a positive result may find as the most clinically significant lesion: colorectal cancer [4.0%], advanced adenoma (including sessile serrated polyps greater than or equal to 1cm diameter) [20%] or non- advanced adenoma [31%]; or no colorectal neoplasia [45%]. These estimates are derived from a prospective cross-sectional screening study of 10,000 individuals at average risk for colorectal cancer who were screened with both Cologuard and colonoscopy. (Fred Briscoe al, N Engl J Med 2014;370(14):1390-5999.) Cologuard may produce a false negative or false positive result (no colorectal cancer or precancerous polyp present at colonoscopy follow up). A negative Cologuard test result does not guarantee the absence of CRC or advanced adenoma (pre-cancer). The current Cologuard screening interval is every 3 years. ([place] [employer] and U.S. Multi-Society Task Force). Cologuard performance data in a 10,000 patient pivotal study using colonoscopy as the reference method can be accessed at the following location: www.RVX.Insightera/results. Additional description of the Cologuard test process, warnings and precautions can be found at [email or web address] [email or web address]. Stool 01/04/2024 7:01 AM CDT 01/05/2024 1:20 PM CDT Amber Ratliff MD LAB BODY FLUIDS AND S TOOLS ORDERABLES Final Result [facility] (CLIA #:[id number]) [address] [address] * Hepatitis C antibody (10/28/2021 8:20 AM CDT) Hep C Ab Nonreactive Nonreactive STEPHANY KIM ([place]) Comment: Interpretive Data Nonreactive: Antibodies to HCV not detected. Does NOT exclude the possibility of recent exposure to HCV. Equivocal: Equivocal for HCV antibodies. Supplemental molecular testing will be automatically performed to determine infection status in accordance with current CDC screening recommendations. Reactive: Positive for HCV antibodies. This may represent current or past HCV infection. Supplemental molecular testing will be automatically performed to determine current infection status in accordance with current CDC screening recommendations. Interpretive data was last revised on 2019. Testing performed by: [facility], [address] [place] [address], [place]., [address] Blood 10/28/2021 8:20 AM CDT 10/28/2021 11:50 AM CDT Amber Ratliff MD LAB MICROBIOLOGY - GE NERAL ORDERABLES Final Result [facility] ([place]) [address] Department [place] [address] * COLONOSCOPY (01/24/2013) Colonoscopy Abnormal Comment:Mild diverticulitis. FU in 10 years Historical Provider HEALTH MAINTENANCE Final Result from Last 3 Months or Most Recently Relevant to Health Maintenance Insurance MEDICARE [facility] MEDICARE [facility] MEDICARE [facility] MEDICARE [facility] [place] [address] Advance Directives For more information, please contact: [phone] * Full Code (Latest Code Status on File) Date Activated Date Inactivated Comments 03/25/2020 12:49 PM 03/25/2020 8:41 PM Care Teams Research And Development Director Relationship Specialty Start Date End Date Amber Ratliff MD [address] [place] [address] [place] [id number] PCP - General Family Medicine 08/30/21 Lolis Mendiola PA Physician [employer] Attendant Orthopedic Surgery 05/06/19 Any Stevenson [employer] [address] [place] [address] [address] [address] Obstetrics and Gynecology 11/01/21 Fritz Gomez MD [address] [place] [address] DR AYLIN Barajas GABRIELA [address] [place] [id number] Surgeon Orthopedic Surgery 11/01/21 [place] [address]A [address] [place] [id number] Consulting Physician Urology 04/15/24
[2025-03-06 10:06] VITALS: BP 157/63; PULSE 69; RESP 18; TEMP 37.1; O2SAT 97
--- NOTE | 2025-03-06 10:23 | ED.URI ---
HPI - URI/Sore Throat General Chief Complaint: Upper Respiratory Infection Stated Complaint: Runny Nose/Body Aches Time Seen by Provider: 03/06/25 10:15 Source: patient Mode of arrival: ambulatory Limitations: no limitations History of Present Illness HPI Narrative: Shayla is a 80-year-old female patient presenting to the clinic today with complaints of runny nose, cough, chills, and body aches x2 days. She has taken Faith-Concord and Tylenol for her symptoms. She has had exposure to COVID and influenza. Denies any chest pain or shortness of breath. Related Data Home Medications ?Medication ?Instructions ?Recorded ?Confirmed ?Last Taken ?Type alprazolam 1 mg tablet 0.5 mg PO HS PRN Anxiety 01/19/23 01/19/23 Unknown History amlodipine 5 mg tablet 5 mg PO DAILY 01/19/23 01/19/23 Unknown History ascorbic acid (vitamin C) 500 mg 250 mg PO DAILY 01/19/23 01/19/23 Unknown History tablet atorvastatin 40 mg tablet 40 mg PO DAILY 01/19/23 01/19/23 Unknown History calcium 500 mg (as 1 tablet PO DAILY 01/19/23 01/19/23 Unknown History carbonate)-vitamin D3 15 mcg (600 unit) tablet cetirizine 10 mg capsule (Zyrtec) 10 mg PO DAILY 01/19/23 01/19/23 Unknown History clopidogrel 75 mg tablet 75 mg PO DAILY 01/19/23 01/19/23 Unknown History fish oil-dha-epa 1,200 mg-144 1 cap PO DAILY 01/19/23 01/19/23 Unknown History mg-216 mg capsule garlic 100 mg tablet 100 mg PO DAILY 01/19/23 01/19/23 Unknown History irbesartan 300 mg tablet 300 mg PO DAILY 01/19/23 01/19/23 Unknown History levothyroxine 50 mcg tablet 50 mcg PO DAILY 01/19/23 01/19/23 Unknown History mirabegron 25 mg tablet,extended 25 mg PO DAILY 01/19/23 01/19/23 Unknown History release 24 hr (Myrbetriq) multivitamin with minerals (Daily 1 tablet PO DAILY 01/19/23 01/19/23 Unknown History Multivitamin-Minerals tablet) venlafaxine 150 mg 150 mg PO DAILY 01/19/23 01/19/23 Unknown History capsule,extended release 24 hr vitamin E mixed 1,000 unit capsule 1,000 unit PO DAILY 01/19/23 01/19/23 Unknown History esomeprazole magnesium 40 mg mg 03/03/23 Unknown History capsule,delayed release venlafaxine 150 mg 150 mg PO DAILY 05/23/23 05/23/23 Unknown History capsule,extended release 24 hr Allergies Allergy/AdvReac Type Severity Reaction Status Date / Time No Known Allergies Allergy Unverified 05/23/23 10:34 Review of Systems Review of Systems: Pertinent positives per HPI. Patient denies any rash, headache, visual changes, dizziness, shortness of breath, chest pain, palpitations, nausea, vomiting, diarrhea, constipation, abdominal pain, or any urinary issues. [facility] Past Medical History Medical History (Updated 03/06/25 @ 10:27 by Rai Yu APRN) CVA (cerebral vascular accident) GERD (gastroesophageal reflux disease) Wrist fracture, bilateral Hypothyroidism Elevated cholesterol Hypertension Anxiety and depression Surgical History Surgical History History of right knee joint replacement Family History Family History Father Heart disease Mother Heart disease Sibling Heart disease Social History Social History Smoking status: Never smoker Alcohol intake: never Alcohol use details: rare Substance use type: does not use Gender identity (if verbalized by the patient): Female Comments At the time of my signature, I reviewed and agree with the nursing past medical, surgical, social, and family history. There is no relevant family history pertinent to the patient complaint. Exam Narrative: General: Well-developed, well nourished, in no apparent distress Head: Normocephalic, atraumatic Eyes: Pupils equally round and reactive to light bilaterally, EOM intact, sclera and conjunctive clear, no discharge, lids normal Ears: TMs intact and clear, ear canals clear, no drainage, grossly hearing normal. Nose: Nares patent, clear discharge, mild inflammation, no sinus tenderness. Mouth: Oral pharynx red without lesions or masses, good dentition, MMM. Postnasal drip Neck: Supple, trachea midline, no enlargement of anterior or posterior cervical nodes, no thyroid masses or goiter palpable. Cardio: Regular rate and rhythm, s1 and s2 normal, no murmur appreciated. Resp: Clear to auscultation bilaterally, no rhonchi, rales, wheezing or rubs Course Course Level of Care: Express Care Visit Vital Signs Vital signs: Vital Signs Temperature 37.1 C 03/06/25 10:06 Pulse Rate 69 03/06/25 10:06 Respiratory Rate 18 03/06/25 10:06 Blood Pressure 157/63 H 03/06/25 10:06 Pulse Oximetry 97 03/06/25 10:06 Oxygen Delivery Room Air 03/06/25 10:06 Temperature 37.1 C 03/06/25 10:06 Pulse Rate 69 03/06/25 10:06 Respiratory Rate 18 03/06/25 10:06 Blood Pressure 157/63 H 03/06/25 10:06 Pulse Oximetry 97 03/06/25 10:06 Oxygen Delivery Room Air 03/06/25 10:06 MDM MDM Narrative Medical decision making narrative: At the time of visit patient is resting comfortably on the exam table. Patient appears to be nontoxic. Complaints of runny nose, cough, chills, and body aches x2 days. She has taken Faith-Concord and Tylenol for her symptoms. She has had exposure to COVID and influenza. Denies any chest pain or shortness of breath. On exam patient has bilateral TMs intact and clear, clear nasal drainage, mild anterior turbinate inflammation, oral pharynx mildly red blood postnasal drip, no cervical lymphadenopathy, heart rates regular rate and rhythm, lung sounds are clear. COVID and influenza testing was ordered Labs: COVID and influenza testing was performed. Influenza testing was negative. COVID test was positive. Plan: Patient has COVID. Supportive measures were discussed with the patient and they voiced understanding discharge instructions and agrees to treatment plan. Return precautions reviewed Differential Diagnosis Differential Diagnosis: Differential diagnostic considerations for upper respiratory infection include upper respiratory infection, croup, otitis media, sinusitis, viral infection, bronchitis, influenza, pharyngitis, strep, uvulitis. Lab Data Labs: Lab Results 03/06/25 Range/Units 10:29 POC Influenza A Ag Negative (Negative) POC Influenza B Ag Negative (Negative) POC SARS CoV-2 Ag Positive (Negative) Discharge Plan Discharge Clinical Impression: COVID-19 Patient Disposition: Home Condition: Stable Instructions: Antibiotic Form, How to Recover from COVID-19 at Home (ED) Additional Instructions: COVID testing was positive in the clinic today. Influenza testing was negative. May take DayQuil/NyQuil for cold flu symptoms. Increase fluids and stay well hydrated May take Tylenol or motrin as directed on bottle for pain/fever May use Flonase 1 spray in each nare daily May take OTC antihistamines such as Zyrtec or Claritin daily as directed on bottle May apply Vicks vapor rub to chest to open sinuses Sinus rinses for congestion Cepacol spray, cough drops, throat lozenges, warm tea with honey/lemon, gargle salt water to soothe throat BRAT diet for diarrhea Clear liquids x 24 hours then advance as tolerated for nausea/vomiting Go to the ED if you develop a worsening in your condition- high fever not controlled by Tylenol or Motrin, dehydration, weakness, lethargy, shortness of breath, or chest pain. Follow up with your PCP in 3-5 days if symptoms persist. Patient Language: German Prescriptions: No Action atorvastatin 40 mg tablet 40 mg PO DAILY alprazolam 1 mg tablet 0.5 mg PO HS PRN (Reason: Anxiety) venlafaxine 150 mg capsule,extended release 24hr 150 mg PO DAILY clopidogrel 75 mg tablet 75 mg PO DAILY amlodipine 5 mg tablet 5 mg PO DAILY levothyroxine 50 mcg tablet 50 mcg PO DAILY irbesartan 300 mg tablet 300 mg PO DAILY Myrbetriq 25 mg tablet extended release 24 hr 25 mg PO DAILY baclofen 20 mg tablet 20 mg PO TID PRN (Reason: radiculopathy) Qty: 12 0RF ascorbic acid (vitamin C) 500 mg Tablet 250 mg PO DAILY fish oil-dha-epa 1,200-144-216 mg Capsule 1 cap PO DAILY garlic 100 mg Tablet 100 mg PO DAILY Daily Multivitamin-Minerals Tablet 1 tablet PO DAILY calcium carbonate-vitamin D3 500 mg-15 mcg (600 unit) Tablet 1 tablet PO DAILY vitamin E mixed [Vitamin E Complex] 1,000 unit Capsule 1,000 unit PO DAILY Zyrtec 10 mg Capsule 10 mg PO DAILY esomeprazole magnesium 40 mg capsule,delayed release(DR/EC) venlafaxine 150 mg capsule,extended release 24hr 150 mg PO DAILY Follow-up/Referrals: Gaudencio,MD Amber [Primary Care Provider, Unknown] Time of Disposition: 10:44 Quality NIHSS Nursing Documentation ED NIHSS nursing documentation: reviewed/agree
[2025-03-06 10:31] LABS: EDCOVIDSCREEN Positive (Negative); EDINFLUASCREEN Negative (Negative); EDINFLUBSCREEN Negative (Negative)
== END 2025-03-06 10:50 | disposition home or self-care (01) ==
PROVIDERS: Emergency Provider Nurse Practitioner Family; PCP Family Medicine
DX: U07.1 COVID-19 (principal); I10 Essential (primary) hypertension; E78.00 Pure hypercholesterolemia, unspecified; E03.9 Hypothyroidism, unspecified; K21.9 Gastro-esophageal reflux disease without esophagitis; F41.9 Anxiety disorder, unspecified; F32.A Depression, unspecified; Z96.651 Presence of right artificial knee joint; Z86.73 Personal history of transient ischemic attack (TIA), and cerebral infarction without residual deficits
CPT/HCPCS: 87426; 87804; 99212; G0463